=== PATIENT | male | born 1955 | race Caucasian/White ===

== ENCOUNTER 2016-09-05 15:50 | Emergency (ER) | payer MEDICARE ==
[~2016-09-05] VITALS: Ht 177.8 cm; Wt 204.0 kg
[~2016-09-05 15:50] MED LIST: ACET-2321 PO; ASPI325T PO; BUME2TAB18 PO; CEPH500C2 PO; DILT180C51 PO; DIPH25TA23 PO; GABA-338 PO; INSU100I14 SQ; INSU100V8 SQ; ISOS60TA4 PO; LEVO25TA9 PO; LISI-625 PO; METF10002 PO; METO-492 PO; NYST10PO TOP; SPIR50TA3 PO; SULF500T8 PO; WARF5TAB6 PO
--- OUTSIDE RECORDS SUMMARY | 2016-09-05 15:55 | XMS REPORT | Referral Summary ---
Author Author [facility] Organization [facility] Address Unknown Phone Unavailable Care Team Providers Care Condenser Setter Name Role Phone Kimo Rowland Primary Care Physician [phone] Encounter VC Date(s): 06/24/16 - 06/24/16 [facility] [address] [place] [address] [phone] Discharge Disposition: 01-Home or Self Care Attending Physician: Stanley Rowland MD Vital Signs No data available for this section Problem List Condition Effective Dates Status Health Status Informant Atrial fibrillation Active (disorder)(Confirmed ) Benign essential Active hypertension (disorder)(Confirmed ) Cellulitis(Confirmed Active ) Congestive heart Active failure(Confirmed) Non-healing ulcer of Active lower leg(Confirmed) Crohn's disease Active (disorder)(Confirmed ) Therapeutic drug Active monitoring(Confirmed ) Obesity Active hypoventilation syndrome(Confirmed) Warfarin Active anticoagulation(Conf irmed) High Active patient cholesterol(Confirme d) Hypothyroidism(Confi Active rmed) [place] (myocardial Active patient infarction)(Confirme d)1 Morbid obesity with Active BMI of 70 and over, adult(Confirmed) MRSA(Confirmed) Active Tear of skin of Active buttock(Confirmed) Sleep Active patient apnea(Confirmed) Venous stasis Active ulcer(Confirmed) Type 2 diabetes Active mellitus(Confirmed) Diabetic Active neuropathy(Confirmed ) Ulcer on Active LE(Confirmed) 1x 2 Allergies, Adverse Reactions, Alerts Substance Reaction Severity Status ibuprofen Cough Active uNspecfied sulfamethoxazole Hives Active sulfamethoxazole-trimetho uNspecfied Active prim trimethoprim Hives Active Medications Aleve 220 mg oral tablet 440 mg 2 tabs, Oral, q8hr, 0 Refill(s) Start Date: 12/29/15 Status: Ordered aspirin 325 mg oral tablet 1 tabs, Oral, Daily, # 30 tabs, 0 Refill(s) Start Date: 10/07/13 Status: Ordered Azulfidine 500 mg oral tablet 500 mg 1 tabs, Oral, TID, # 90 tabs, 3 Refill(s), Pharmacy: [facility], 1 tabs Oral TID Start Date: 10/05/15 Status: Ordered bumetanide 2 mg oral tablet 2 mg 1 tabs, Oral, BID, # 60 tabs, 6 Refill(s), Pharmacy: [facility] , 1 tabs Oral BID,x30 days Start Date: 06/07/16 Stop Date: 01/03/17 Status: Ordered Cartia XT 180 mg/24 hours oral capsule, extended release See Instructions, TAKE ONE CAPSULE BY MOUTH ONCE DAILY, # 30 caps, 6 Refill(s), Pharmacy: [place] [id number] Start Date: 06/04/16 Status: Ordered Colace 50 mg oral capsule 1 caps, Oral, Daily, # 30 caps, 0 Refill(s) Start Date: 10/07/13 Status: Ordered gabapentin 300 mg oral capsule See Instructions, TAKE TWO CAPSULES BY MOUTH THREE TIMES DAILY, # 180 caps, 1 Refill(s), Pharmacy: [place] [id number], TAKE TWO CAPSULES BY MOUTH THREE TIMES DAILY Start Date: 04/08/16 Status: Ordered garlic oral tablet 1,000 mg, Oral, Daily, 0 Refill(s) Start Date: 04/06/14 Status: Ordered HumaLOG 100 units/mL subcutaneous solution See Instructions, 0.35 mL SubCutaneous TIDAC E11.9, # 31.5 mL, 6 Refill(s), Pharmacy: [facility], 0.35 mL SubCutaneous TIDAC; E11.9 Start Date: 05/14/16 Status: Ordered isosorbide mononitrate 60 mg oral tablet, extended release 60 mg 1 tabs, Oral, qAM, # 30 tabs, 6 Refill(s), Pharmacy: [facility], 1 tabs Oral qAM Start Date: 12/29/15 Status: Ordered Keflex 500 mg oral capsule 500 mg 1 caps, Oral, q6hr, Got while in hospital, 0 Refill(s) Start Date: 04/08/16 Stop Date: 04/18/16 Status: Ordered Lantus 100 units/mL subcutaneous solution See Instructions, INJECT 60 UNITS UNDER THE SKIN DAILY., # 30 mL, 6 Refill(s), Pharmacy: [facility], INJECT 60 UNITS UNDER THE SKIN DAILY. Start Date: 06/04/16 Status: Ordered levothyroxine 50 mcg (0.05 mg) oral tablet 50 mcg 1 tabs, Oral, Daily, 90 day supply, # 90 tabs, 1 Refill(s), Pharmacy: [place] [id number], 1 tabs Oral Daily,Instr:90 day supply Start Date: 12/01/15 Status: Ordered lisinopril 5 mg oral tablet See Instructions, TAKE ONE TABLET BY MOUTH ONCE DAILY, # 90 tabs, 1 Refill(s), eRx: [place] [id number] Start Date: 06/10/16 Status: Ordered melatonin 5 mg oral tablet 1 tabs, Oral, Bedtime (once a day), as needed for insomnia, # 60 tabs, 0 Refill( s) Start Date: 10/19/13 Status: Ordered metFORMIN 1000 mg oral tablet See Instructions, TAKE ONE TABLET BY MOUTH TWICE DAILY, # 60 tabs, 6 Refill(s), Pharmacy: [place] [address] Start Date: 06/10/16 Status: Ordered metoprolol tartrate 100 mg oral tablet 100 mg 1 tabs, Oral, BID, # 60 tabs, 3 Refill(s), Pharmacy: [place] [address] Start Date: 04/11/16 Stop Date: 08/09/16 Status: Ordered Metoprolol Tartrate 50 mg oral tablet See Instructions, 1 tabs Oral BID 90 day supply, # 180 tabs, 0 Refill(s), Pharmacy: [facility], 1 tabs Oral BID 90 day supply Start Date: 02/02/16 Status: Ordered Miscellaneous DME DME Item Power wheelchair, ALBARO 99 yrs, Dx Morobid Obesity, Chronic deconditioning. Severe exertional Dsypnea. Inability to ambulate >30 feet., See Instructions, # 1 Each, 0 Refill(s), Power wheelchair, ALBARO 89 yrs, Dx Morobid Obesity, Chronic deconditi... Start Date: 08/08/15 Status: Ordered nitroglycerin 0.4 mg sublingual tablet 1 tabs, SubLingual, q5min, as needed for chest pain, # 25 tabs, 0 Refill(s), called to pharmacy (Rx), 1 tabs SubLingual q5min,PRN:as needed for chest pain Start Date: 01/28/14 Status: Ordered spironolactone 25 mg oral tablet 25 mg 1 tabs, Oral, BID, # 60 tabs, 6 Refill(s), Pharmacy: [facility], 1 tabs Oral BID,x30 days Start Date: 06/11/16 Stop Date: 01/07/17 Status: Ordered torsemide 20 mg oral tablet 2 tabs, Oral, Daily, # 60 tabs, 3 Refill(s), Pharmacy: [facility], 2 tabs Oral Daily Start Date: 09/07/14 Status: Ordered traZODone 50 mg oral tablet 50 mg 1 tabs, Oral, Bedtime (once a day), # 30 tabs, 1 Refill(s), Pharmacy: [facility], 1 tabs Oral Bedtime (once a day),x30 days Start Date: 06/07/16 Stop Date: 08/06/16 Status: Ordered warfarin 5 mg oral tablet 5 mg 1 tabs, Oral, Daily, # 90 tabs, 1 Refill(s), Pharmacy: [facility], 1 tabs Oral Daily Start Date: 03/08/16 Status: Ordered Results No data available for this section Immunizations Given and Recorded Vaccine Date Status Refusal Reason pneumococcal 23-polyvalent vaccine 05/17/09 Recorded Procedures Procedure Date Related Diagnosis Body Site Application of multi-layer compression 06/24/16 system; leg (below knee), including ankle and foot Colonoscopy1 12/29/15 Procedure with Anesthesia2 12/29/15 gallbladder hand3 lower leg4 tonsils 1auto-populated from documented surgical case 2auto-populated from documented surgical case 3right hand fifth finger 4right with hardware Social History Social History Type Response Smoking Status Never smoker Assessment and Plan No data available for this section
--- OUTSIDE RECORDS SUMMARY | 2016-09-05 15:55 | XMS REPORT | Referral Summary ---
Author Author [facility] Organization [facility] Address Unknown Phone Unavailable Care Team Providers Care Clinical Coder Name Role Phone KashifKimo Primary Care Physician [phone] Encounter VC Date(s): 03/18/16 - 03/18/16 [facility] [address] [place] [address] Discharge Disposition: 01-Home or Self Care Attending Physician: Cecilio Padilla DO Vital Signs No data available for this [...] Active patient cholesterol(Confirme d) Hypothyroidism(Confi Active rmed) [place] (myocardial Active patient infarction)(Confirme d)1 Morbid obesity [...] TID, # 90 tabs, 3 Refill(s), Pharmacy: [facility], 1 tabs Oral TID Start Date: 10/05/15 Status: Ordered Cartia XT 180 mg/24 hours oral capsule, extended release 180 mg 1 caps, Oral, Daily, # 30 caps, 6 Refill(s), other reason (Rx) Start Date: 11/09/15 Status: Ordered Colace 50 mg oral capsule 1 caps, Oral, Daily, # 30 caps, 0 Refill(s) Start Date: 10/07/13 Status: Ordered gabapentin 300 mg oral capsule See Instructions, TAKE TWO CAPSULES BY MOUTH THREE TIMES DAILY, # 180 caps, 1 Refill(s), eRx: [facility], TAKE TWO CAPSULES BY MOUTH THREE TIMES DAILY Start Date: 01/24/16 Status: Ordered garlic oral tablet 1,000 mg, Oral, Daily, 0 Refill(s) Start Date: 04/06/14 Status: Ordered isosorbide mononitrate 60 mg oral tablet, extended release 60 mg 1 tabs, Oral, qAM, # 30 tabs, 6 Refill(s), Pharmacy: [facility] 242, 1 tabs Oral qAM Start Date: 12/29/15 Status: Ordered Lantus 100 units/mL subcutaneous solution See Instructions, INJECT 60 UNITS UNDER THE SKIN DAILY. 1 month supply., # 20 mL , 5 Refill(s), Pharmacy: [facility], INJECT 60 UNITS UNDER THE SKIN DAILY. 1 month supply. Start Date: 07/03/15 Status: Ordered levothyroxine 50 mcg (0.05 mg) oral tablet 50 mcg 1 tabs, Oral, Daily, 90 day supply, # 90 tabs, 1 Refill(s), Pharmacy: [facility], 1 tabs Oral Daily,Instr:90 day supply Start Date: 12/01/15 Status: Ordered lisinopril 5 mg oral tablet See Instructions, take 1 tablet daily 90 day supply, # 90 tabs, 1 Refill(s), Pharmacy: [facility], take 1 tablet daily 90 day supply Start Date: 12/01/15 Status: Ordered melatonin 5 mg oral tablet 1 tabs, Oral, Bedtime (once a day), as needed for insomnia, # 60 tabs, 0 Refill( s) Start Date: 10/19/13 Status: Ordered metFORMIN 1000 mg oral tablet 1 tabs, Oral, BID, # 60 tabs, 5 Refill(s), Pharmacy: [facility], 1 tabs Oral BID Start Date: 08/01/14 Status: Ordered Metoprolol Tartrate 50 mg oral tablet See Instructions, 1 tabs Oral BID 90 day supply, # 180 tabs, 0 Refill(s), Pharmacy: [facility], 1 tabs Oral BID 90 day supply [...] Status: Ordered spironolactone 25 mg oral tablet 50 mg 2 tabs, Oral, BID, # 120 tabs, 3 Refill(s), Pharmacy: [facility], 2 tabs Oral BID Start Date: 03/29/15 Status: Ordered torsemide 20 mg oral tablet 2 tabs, Oral, Daily, # 60 tabs, 3 Refill(s), Pharmacy: [facility], 2 tabs Oral Daily Start Date: 09/07/14 Status: Ordered warfarin 5 mg oral tablet 5 mg 1 tabs, Oral, Daily, # 90 tabs, 1 Refill(s), Pharmacy: [facility], 1 tabs Oral Daily Start Date: 03/08/16 Status: Ordered Results No data available for this section Immunizations Vaccine Date Refusal Reason pneumococcal 23-polyvalent vaccine 05/17/09 Procedures Procedure Date Related Diagnosis Body Site Application of multi-layer compression 03/18/16 system; leg (below knee), including ankle and foot Colonoscopy1 12/29/15 Procedure with Anesthesia2 12/29/15 gallbladder hand3 lower leg4 tonsils 1auto-populated from documented surgical case 2auto-populated from documented surgical case 3right hand fifth finger 4right with hardware Social History Social History Type Response Smoking Status Never smoker Assessment and Plan No data available for this section
--- OUTSIDE RECORDS SUMMARY | 2016-09-05 15:56 | XMS REPORT | Referral Summary ---
Author Author [facility] Organization [facility] Address Unknown Phone Unavailable Care Team Providers Care Nuclear Equipment Design Engineer Name Role Phone KashifKimo Primary Care Physician [phone] Encounter VC Date(s): 02/05/16 - 02/05/16 [facility] [address] [place] [address] Discharge Disposition: 01-Home or Self Care Attending Physician: Cecilio Padilla DO Vital Signs No data available for this section Problem List Condition Effective Dates Status Health Status Informant Atrial fibrillation Active (disorder)(Confirmed ) Benign essential Active hypertension (disorder)(Confirmed ) Cellulitis(Confirmed Active ) Congestive heart Active failure(Confirmed) Non-healing ulcer of Active lower leg(Confirmed) Crohn's disease Active (disorder)(Confirmed ) Diabetic Active neuropathy(Confirmed ) Therapeutic drug Active monitoring(Confirmed ) Obesity Active hypoventilation syndrome(Confirmed) Warfarin Active anticoagulation(Conf irmed) High Active patient cholesterol(Confirme d) Hypothyroidism(Confi Active rmed) [place] (myocardial Active patient infarction)(Confirme d)1 Morbid obesity with Active BMI of 70 and over, adult(Confirmed) MRSA(Confirmed) Active Tear of skin of Active buttock(Confirmed) Sleep Active patient apnea(Confirmed) Venous stasis Active ulcer(Confirmed) Type 2 diabetes Active mellitus(Confirmed) Ulcer on Active LE(Confirmed) 1x 2 Allergies, [...] TID, # 90 tabs, 3 Refill(s), Pharmacy: [facility], 1 tabs Oral TID [...] DAILY, # 180 caps, 1 Refill(s), eRx: [facility], TAKE TWO CAPSULES BY MOUTH THREE TIMES DAILY Start Date: 01/24/16 Status: Ordered garlic oral tablet 1,000 mg, Oral, Daily, 0 Refill(s) Start Date: 04/06/14 Status: Ordered isosorbide mononitrate 60 mg oral tablet, extended release 60 mg 1 tabs, Oral, qAM, # 30 tabs, 6 Refill(s), Pharmacy: [facility] 242, 1 tabs Oral qAM Start Date: 12/29/15 Status: Ordered Lantus 100 units/mL subcutaneous solution See Instructions, INJECT 60 UNITS UNDER THE SKIN DAILY. 1 month supply., # 20 mL , 5 Refill(s), Pharmacy: [facility], INJECT 60 UNITS UNDER THE SKIN DAILY. 1 month supply. Start Date: 07/03/15 Status: Ordered levothyroxine 50 mcg (0.05 mg) oral tablet 50 mcg 1 tabs, Oral, Daily, 90 day supply, # 90 tabs, 1 Refill(s), Pharmacy: [facility], 1 tabs Oral Daily,Instr:90 day supply Start Date: 12/01/15 Status: Ordered lisinopril 5 mg oral tablet See Instructions, take 1 tablet daily 90 day supply, # 90 tabs, 1 Refill(s), Pharmacy: [facility], take 1 tablet daily 90 day supply Start Date: 12/01/15 Status: Ordered melatonin 5 mg oral tablet 1 tabs, Oral, Bedtime (once a day), as needed for insomnia, # 60 tabs, 0 Refill( s) Start Date: 10/19/13 Status: Ordered metFORMIN 1000 mg oral tablet 1 tabs, Oral, BID, # 60 tabs, 5 Refill(s), Pharmacy: [facility], 1 tabs Oral BID Start Date: 08/01/14 Status: Ordered Metoprolol Tartrate 50 mg oral tablet See Instructions, 1 tabs Oral BID 90 day supply, # 180 tabs, 0 Refill(s), Pharmacy: [facility], 1 tabs Oral BID [...] BID, # 120 tabs, 3 Refill(s), Pharmacy: [facility], 2 tabs Oral BID Start Date: 03/29/15 Status: Ordered torsemide 20 mg oral tablet 2 tabs, Oral, Daily, # 60 tabs, 3 Refill(s), Pharmacy: [facility], 2 tabs Oral Daily Start Date: 09/07/14 Status: Ordered warfarin 5 mg oral tablet 5 mg 1 tabs, Oral, Daily, # 90 tabs, 1 Refill(s), 1 tabs Oral Daily Start Date: 07/03/15 Status: Ordered Results No data available for this section Immunizations Vaccine Date Refusal Reason pneumococcal 23-polyvalent vaccine 05/17/09 Procedures Procedure Date Related Diagnosis Body Site Application of multi-layer compression 02/05/16 system; leg (below knee), including ankle and foot Colonoscopy1 12/29/15 Procedure with Anesthesia2 12/29/15 gallbladder hand3 lower leg4 tonsils 1auto-populated from documented surgical case 2auto-populated from documented surgical case 3right hand fifth finger 4right with hardware Social History Social History Type Response Smoking Status Never smoker Assessment and Plan No data available for this section
--- OUTSIDE RECORDS SUMMARY | 2016-09-05 15:56 | XMS REPORT | Referral Summary ---
Author Author [facility] Organization [facility] Address Unknown Phone Unavailable Care Team Providers Care Cargo Worker Name Role Phone KashifKimo Primary Care Physician [phone] Encounter VC Date(s): 03/04/16 - 03/04/16 [facility] [address] [place] [address] Discharge Disposition: 01-Home or Self Care Attending [...] Active patient cholesterol(Confirme d) Hypothyroidism(Confi Active rmed) [place] (myocardial Active patient infarction)(Confirme d)1 Morbid obesity [...] TID, # 90 tabs, 3 Refill(s), Pharmacy: [facility], 1 tabs Oral TID Start [...] DAILY, # 180 caps, 1 Refill(s), eRx: [facility], TAKE TWO CAPSULES BY MOUTH THREE TIMES DAILY Start Date: 01/24/16 Status: Ordered garlic oral tablet 1,000 mg, Oral, Daily, 0 Refill(s) Start Date: 04/06/14 Status: Ordered isosorbide mononitrate 60 mg oral tablet, extended release 60 mg 1 tabs, Oral, qAM, # 30 tabs, 6 Refill(s), Pharmacy: [facility], 1 tabs Oral qAM Start Date: 12/29/15 Status: Ordered Lantus 100 units/mL subcutaneous solution See Instructions, INJECT 60 UNITS UNDER THE SKIN DAILY. 1 month supply., # 20 mL , 5 Refill(s), Pharmacy: [facility]28, INJECT 60 UNITS UNDER THE SKIN DAILY. 1 month supply. Start Date: 07/03/15 Status: Ordered levothyroxine 50 mcg (0.05 mg) oral tablet 50 mcg 1 tabs, Oral, Daily, 90 day supply, # 90 tabs, 1 Refill(s), [facility]acy[facility], 1 tabs Oral Daily,Instr:90 day supply Start Date: 12/01/15 Status: Ordered lisinopril 5 mg oral tablet See Instructions, take 1 tablet daily 90 day supply, # 90 tabs, 1 Refill(s), Pharmacy: [facility]28, take 1 tablet daily 90 day supply Start Date: 12/01/15 Status: Ordered melatonin 5 mg oral tablet 1 tabs, Oral, Bedtime (once a day), as needed for insomnia, # 60 tabs, 0 Refill( s) Start Date: 10/19/13 Status: Ordered metFORMIN 1000 mg oral tablet 1 tabs, Oral, BID, # 60 tabs, 5 Refill(s), Pharmacy: [facility], 1 tabs Oral BID Start Date: 08/01/14 Status: Ordered Metoprolol Tartrate 50 mg oral tablet See Instructions, 1 tabs Oral BID 90 day supply, # 180 tabs, 0 Refill(s), Pharmacy: [facility]28, 1 tabs Oral BID 90 [...] BID, # 120 tabs, 3 Refill(s), Pharmacy: [facility]103, 2 tabs Oral BID Start Date: 03/29/15 Status: Ordered torsemide 20 mg oral tablet 2 tabs, Oral, Daily, # 60 tabs, 3 Refill(s), Pharmacy: [facility], 2 tabs Oral Daily Start Date: 09/07/14 Status: Ordered warfarin 5 mg oral tablet 5 mg 1 tabs, Oral, Daily, # 90 tabs, 1 Refill(s), 1 tabs Oral Daily Start Date: 07/03/15 Status: Ordered Results No data available for this section Immunizations Vaccine Date Refusal Reason pneumococcal 23-polyvalent vaccine 05/17/09 Procedures Procedure Date Related Diagnosis Body Site Application of multi-layer compression 03/04/16 system; leg (below knee), including ankle and foot Colonoscopy1 12/29/15 Procedure with Anesthesia2 12/29/15 gallbladder hand3 lower leg4 tonsils 1auto-populated from documented surgical case 2auto-populated from documented surgical case 3right hand fifth finger 4right with hardware Social History Social History Type Response Smoking Status Never smoker Assessment and Plan No data available for this section
--- OUTSIDE RECORDS SUMMARY | 2016-09-05 15:57 | XMS REPORT | Continuity of Care Document ---
Author Author [facility] Organization [facility] Address Unknown Phone Unavailable Support Name Relationship Address Phone JUS JONES MD Caregiver [address] [place] [address] [place] [address] Unavailable JUS JONES MD Caregiver [address] [place] [address] [place] [address] Unavailable ADITHYA PLATT MD Caregiver [address] [place] [id number] Unavailable ANGIE RIVERA Next Of Kin [phone] [place] [address] Insurance Providers Guarantor Waylon Rivera Address [address] [place] [address] Email DENIED TO PORTAL Payer Medicare Policy Number [id number] Subscriber's Name Waylon Rivera Relationship 17 Self Advance Directives Directive Response Recorded Date/Time Advanced Directives Type None 03/30/16 11:50am Ordered Resuscitation Status Full Code 03/30/16 7:10pm Resuscitation Documents on File No 03/30/16 2:15pm DPOA for Healthcare Only No 03/30/16 2:15pm Living Will No 03/30/16 2:15pm Problems Active Problems Medical Problem Onset Date Status Atrial fibrillation with RVR Unknown Acute CAD (coronary artery disease) Unknown Chronic Cellulitis of left lower extremity Unknown Acute Chronic anticoagulation Unknown Chronic Chronic atrial fibrillation Unknown Chronic Colitis, indeterminate Unknown Chronic Congestive heart failure Unknown Chronic Hypertension Unknown Chronic Hypothyroidism Unknown Chronic Insomnia Unknown Chronic Leukocytosis Unknown Acute Morbid obesity with BMI of 60.0-69.9, adult Unknown Chronic Neuropathy Unknown Chronic Obstructive sleep apnea Unknown Chronic Severe sepsis Unknown Resolved Tachycardia Unknown Acute Tinea corporis Unknown Chronic Type II diabetes mellitus Unknown Chronic Wound of left leg Unknown Chronic Past Problems Medical Problem Onset Date Cellulitis Unknown Medications Current Home Medications Medication Dose Units Route Directions Days Qty Instructions Start Date Acetaminophen (Tylenol) 325 Mg Tablet 325-650 Mg Oral Every 5 Hours as needed for Discomfort 30 Tablet 04/05/16 Aspirin 325 Mg Tablet 325 Mg Oral Daily 03/30/16 Bumetanide 2 Mg Tablet 2 Mg Oral Twice A Day 03/30/16 Cephalexin 500 Mg Capsule 500 Mg Oral Q6h/0300,0900,1500,2100 10 Days 40 Capsule 04/05/16 Diltiazem Hcl (Cartia Xt) 180 Mg Capsule 180 Mg Oral Daily Diphenhydramine Hcl 25 Mg Tablet 50 Mg Oral Every 4 Hours as needed for Prn Orders 03/30/16 Gabapentin 300 Mg Capsule 600 Mg Oral Three Times A Day 03/30/16 Insulin Glargine,Hum.rec.anlog (Lantus) 100 Unit/Ml Inj 60 Unit Sub-Q Bedtime 03/30/16 Insulin Lispro (Humalog) 100 Unit/1 Ml Insuln.pen 40 Unit Sub-Q Three Times Daily With Meals 03/30/16 Isosorbide Mononitrate (Isosorbide Mononitrate Er) 60 Mg Tab.er.24h 60 Mg Oral Daily 03/30/16 Levothyroxine Sodium 25 Mcg Tablet 25 Mcg Oral Before Breakfast Once daily before breakfast 03/30/16 Lisinopril 5 Mg Tablet 5 Mg Oral Daily 03/30/16 Metformin Hcl 1,000 Mg Tablet 1,000 Mg Oral Twice Daily With Meals 03/30/16 Metoprolol Tartrate (Lopressor) 100 Mg Tablet 100 Mg Oral Twice Daily With Meals 60 Tablet 04/05/16 Nystatin 50,000,000 Unit Powder.ea. 1 Applic Topically Three Times A Day 1 Bottle 04/05/16 Spironolactone 50 Mg Tablet 50 Mg Oral Daily 30 04/05/16 Sulfasalazine 500 Mg Tablet 500 Mg Oral Three Times A Day Warfarin Sodium 5 Mg Tablet 5 Mg Oral Daily 03/30/16 Past Home Medications Medication Directions Ordered Status Metoprolol Tartrate 50 Mg Tablet, 50 Mg Oral Twice Daily With Meals 03/30/16 Discontinued Spironolactone 50 Mg Tablet, 50 Mg Oral Twice A Day 03/30/16 Discontinued Social History Social History Problem Response Recorded Date/Time Onset Date Status Reason for Hospitalization cellulitis leg, severe sepsis 04/05/2016 5:55pm Not Applicable Not Applicable Chewing Tobacco Status No 03/30/2016 12:20pm Not Applicable Not Applicable Hx Substance Use No 03/30/2016 12:20pm Not Applicable Not Applicable Hx Alcohol Use No 03/30/2016 12:20pm Not Applicable Not Applicable Has the pt used tobacco in the last 12 months No 03/30/2016 2:18pm Not Applicable Not Applicable Query Response Start Date Stop Date Smoking Status Never smoker Hospital Discharge Instructions Instructions: Care Instructions: Reason for Hospitalization: cellulitis leg, severe sepsis I was in the hospital because (patient own words): I'm here because my leg flared up with a rash, nurse said go to hospital Discharge Diet: 2400 gabby ADA diet Discharge Activity: Up with walker as tolerated Follow Up Appointments: Follow-up at the wound care clinic with next week Follow-up with at the [facility] residency clinic next week Pending Lab / Results: No Pending Lab Patient Instructions: Use her CPAP at night Wound/Incision Care: Dressing changes on your leg 3 times a week and as needed by home health. Further recommendations per Dr. Coleman Pain Management/Treatment: Tylenol as needed Expected Signs/Symptoms: The redness on your leg should gradually improve Notify Physician If: Notify your physician if you are having increased redness in your leg, recurrence of fevers, diarrhea, or increased leg pain. Call 911 if you have lightheadedness, chest pain, or shortness of breath During Business Hours:: Please call the physician's office at the [facility] clinic After Business Hours:: Please call [phone] and have the glue reel operator page the physician. Condition at time of discharge: Good Plan of Care Discharge Date 04/05/16 6:30pm Disposition 06 HOME HEALTH SERVICE Instructions/Education Provided [facility] Congestive Heart Failure DI for Cellulitis -- Adult Prescriptions See Medication Section Care Plan and Goals See Discharge Instructions Section Functional Status Query Response Date Recorded Mobility Status Ambulatory w/assist April 05, 2016 5:55pm Assistive Devices Motorized Scooter April 05, 2016 5:55pm Activity Limitations Pain April 05, 2016 5:55pm Feeding Ability Independent April 05, 2016 5:55pm Toileting Ability Independent April 05, 2016 5:55pm Grooming Ability Independent April 05, 2016 5:55pm Dressing Ability Independent April 05, 2016 5:55pm Driving Ability Independent April 05, 2016 5:55pm Housework Ability Independent April 05, 2016 5:55pm Meal Preparation Ability Independent April 05, 2016 5:55pm Stair Climbing Ability Dependent April 05, 2016 5:55pm Ability to complete ADL's impeded by Impaired Mobility April 05, 2016 5:55pm Cognitive/Perceptual Impairments Impaired vision April 05, 2016 5:55pm Visual Assistive Devices Glasses With patient April 02, 2016 2:00pm Preferred Method of Learning Reading Listening April 02, 2016 2:00pm Allergies, Adverse Reactions, Alerts Allergen Type Severity Reaction Status Last Updated Ibuprofen Allergy Mild Active 03/30/16 Sulfamethoxazole Allergy Unknown rash Active 03/30/16 Trimethoprim Allergy Unknown rash Active 03/30/16 Immunizations Query Response on File Recorded Date/Time Hx Influenza Vaccination N does not take them 03/30/16 2:18pm Hx Pneumococcal Vaccination Yes 03/30/16 2:18pm Hx Influenza Vaccination N does not take them 03/30/16 2:18pm Vital Signs Acute Vital Signs Vital Response Date/Time Temperature (Fahrenheit) 96.9 deg F (96.8 - 99.1) 04/05/2016 4:10pm Temperature (Calculated Celsius) 36.14459 degrees C (36.0 - 37.3) 04/05/2016 4:10pm Pulse Rate (adult) 16 bpm (60 - 100) 04/05/2016 4:10pm Respiratory Rate 88 breaths/min (10 - 20) 04/05/2016 4:10pm O2 Sat by Pulse Oximetry 95 % (90 - 100) 04/05/2016 4:10pm Oxygen Delivery Method Room Air 04/05/2016 4:10pm Fraction of Inspired Oxygen (FIO2) 21 % 04/02/2016 7:20am Blood Pressure 115/67 mm Hg 04/05/2016 4:10pm Blood Pressure Source Automatic Cuff 04/05/2016 4:10pm Height (Feet) 5 feet 04/05/2016 9:54am Height (Inches) 10.00 inches 04/05/2016 9:54am Weight (Kilograms) 201.200 kg 04/05/2016 7:30am Body Mass Index (BMI) 65.0 03/30/2016 2:13pm Results Laboratory Results Test Name Result Units Flags Reference Collection Date/Time Result Date/ Time Comments White Blood Count 12.0 T/MM3 H 4.5-11.0 04/05/2016 4:00am 04/05/2016 9: 40am Red Blood Count 4.40 M/MM3 L 4.50-5.90 04/05/2016 4:00am 04/05/2016 9: 40am Hemoglobin 11.9 GM/DL L 13.5-17.5 04/05/2016 4:00am 04/05/2016 9:40am Hematocrit 37.9 % L 41-53 04/05/2016 4:00am 04/05/2016 9:40am Mean Corpuscular Volume 86.1 UM3 80-100 04/05/2016 4:00am 04/05/2016 9: 40am Mean Corpuscular Hemoglobin 27.0 UUG 26-34 04/05/2016 4:00am 2015 9:40am Mean Corpuscular Hemoglobin Concent 31.4 GM/DL 31-37 04/05/2016 4:00am 04/05/2016 9:40am RDW Standard Deviation 44.1 FL 36.9-50.2 04/05/2016 4:00am 04/05/2016 9 :40am Platelet Count 335 T/MM3 130-400 04/05/2016 4:00am 04/05/2016 9:40am Mean Platelet Volume 10.5 UM3 9.4-12.4 04/05/2016 4:00am 04/05/2016 9: 40am Neutrophils % (Manual) 72.0 % H 33-66 04/05/2016 4:00am 04/05/2016 9: 59am Band Neutrophils % 1.0 % 0-6 04/05/2016 4:00am 04/05/2016 9:59am Lymphocytes % (Manual) 14.0 % L 23-45 04/05/2016 4:00am 04/05/2016 9: 59am Monocytes % (Manual) 8.0 % 0-9.0 04/05/2016 4:00am 04/05/2016 9:59am Eosinophils % (Manual) 5.0 % H 0-4 04/05/2016 4:00am 04/05/2016 9:59am Metamyelocytes % 3.0 % H 0-0 04/04/2016 5:08am 04/04/2016 6:40am Myelocytes % 5.0 % H 0-0 04/04/2016 5:08am 04/04/2016 6:40am Reactive Lymphocytes % 2.0 % H 0-0 04/04/2016 5:08am 04/04/2016 6:40am Band Neutrophils # 0.1 T/MM3 04/05/2016 4:00am 04/05/2016 9:59am Absolute Neutrophils (Manual) 8.6 T/MM3 H 1.8-7.7 04/05/2016 4:00am 06/2015 9:59am Lymphocytes # (Manual) 1.7 T/MM3 1-4.8 04/05/2016 4:00am 04/05/2016 9: 59am Monocytes # (Manual) 1.0 T/MM3 H 0-0.8 04/05/2016 4:00am 04/05/2016 9: 59am Eosinophils # (Manual) 0.6 T/MM3 H 0-0.5 04/05/2016 4:00am 04/05/2016 9: 59am Metamyelocytes # 0.3 T/MM3 04/04/2016 5:08am 04/04/2016 6:40am Myelocytes # 0.6 T/MM3 04/04/2016 5:08am 04/04/2016 6:40am Reactive Lymphocytes # 0.2 T/MM3 H 0-0 04/04/2016 5:08am 04/04/2016 6: 40am Red Cell Morphology Comment NORMAL 04/05/2016 4:00am 04/05/2016 9: 59am Prothromb Time International Ratio 2.12 H 0.99-1.21 04/05/2016 4:54am 04/05/2016 5:47am THERAPUTIC RANGE=2.00-3.00 FOR ANTI-THROMBOSIS THERAPUTIC RANGE=2.50-3.50 FOR IMPLANTED VALVE Icterus Index < 2 0-7 04/05/2016 4:00am 04/05/2016 9:45am Chemistry Specimen Hemolysis < 15 0-25 04/05/2016 4:00am 04/05/2016 9 :45am 0-25: Specimen Exhibited No Hemolysis. Turbidity < 20 0-20 04/05/2016 4:00am 04/05/2016 9:45am Sodium Level 134 MEQ/L 134-144 04/05/2016 4:00am 04/05/2016 9:45am Potassium Level 4.9 MEQ/L 3.6-5 04/05/2016 4:00am 04/05/2016 9:45am Chloride Level 92 MEQ/L L 98-107 04/05/2016 4:00am 04/05/2016 9:45am Carbon Dioxide Level 33 MEQ/L H 22-30 04/05/2016 4:00am 04/05/2016 9: 45am Anion Gap 9 MEQ/L 5-15 04/05/2016 4:00am 04/05/2016 9:45am Blood Urea Nitrogen 30.0 MG/DL H 9-20 04/05/2016 4:00am 04/05/2016 9: 45am Creatinine 1.2 MG/DL 0.8-1.5 04/05/2016 4:00am 04/05/2016 9:45am BUN/Creatinine Ratio 25 RATIO 6-26 04/05/2016 4:00am 04/05/2016 9:45am Glomerular Filtration Rate Calc 61 04/05/2016 4:00am 04/05/2016 9: 45am Glucose Level 154 MG/DL H 75-110 04/05/2016 4:00am 04/05/2016 9:45am Calculated Osmolality 267 MOSM/KG 261-280 04/05/2016 4:00am 04/05/2016 9:45am Calcium Level 8.7 MG/DL 8.4-10.2 04/05/2016 4:00am 04/05/2016 9:45am Total Bilirubin 0.60 MG/DL 0.20-1.30 04/02/2016 4:40am 04/02/2016 5: 37am Unconjugated Bilirubin < -0.30 MG/DL L 0.00-1.10 03/30/2016 12:37pm 3:35pm Alkaline Phosphatase 178 U/L D H 38-126 04/02/2016 4:40am 04/02/2016 5: 52am Total Protein 6.6 G/DL 6.3-8.2 04/02/2016 4:40am 04/02/2016 5:37am Albumin 3.3 G/DL L 3.5-5.0 04/02/2016 4:40am 04/02/2016 5:37am Globulin 3.3 G/DL 2.4-3.6 04/02/2016 4:40am 04/02/2016 5:37am Albumin/Globulin Ratio 1.0 RATIO L 1.1-2.2 04/02/2016 4:40am 04/02/2016 5:37am Aspartate Amino Transf (AST/SGOT) 46 U/L D 17-59 04/02/2016 4:40am 2015 5:52am Alanine Aminotransferase (ALT/SGPT) 47 U/L 21-72 04/02/2016 4:40am 5:37am C-Reactive Protein 157.0 MG/L H 0-9 04/02/2016 4:40am 04/02/2016 5:48am Plasma Lactate 1.3 MMOL/L 0.6-2.2 03/30/2016 4:42pm 03/30/2016 5:25pm Procalcitonin 0.65 NG/ML 03/30/2016 4:42pm 03/30/2016 5:26pm PCT </= 0.5 ng/mL - sepsis not likely; PCT >0.5 and </=2 ng/mL - sepsis possible; PCT >2 ng/mL - sepsis likely; PCT >/=10 ng/mL - systemic inflammatory response - sepsis or septic shock highly indicated. Thyroid Stimulating Hormone (TSH) 3.13 MIU/L 0.47-4.68 03/31/2016 5: 52am 03/31/2016 6:46am Hemoglobin A1c 7.9 % 6.1-7.9 03/31/2016 5:52am 03/31/2016 6:14am <6.0 NON-DIABETIC RANGE 6.1-7.9 [facility] TARGET RANGE >8.0 ACTION SUGGESTED MRSA Specimen Source NASAL 04/02/2016 1:10pm 04/02/2016 3:43pm Methicillin-Resist S.aureus DNA PCR NEGATIVE NEGATIVE 04/02/2016 1: 10pm 04/02/2016 3:43pm Urine Color YELLOW YELLOW 03/31/2016 4:53pm 03/31/2016 5:04pm Urine Turbidity CLEAR CLEAR 03/31/2016 4:53pm 03/31/2016 5:04pm Urine Specific [place] 1.015 1.015-1.025 03/31/2016 4:53pm 2015 5:04pm Urine pH 5.0 5.0-8.0 03/31/2016 4:53pm 03/31/2016 5:04pm Urine Leukocyte Esterase NEGATIVE NEGATIVE 03/31/2016 4:53pm 2015 5:04pm Urine Nitrite NEGATIVE NEGATIVE 03/31/2016 4:53pm 03/31/2016 5:04pm Urine Protein NEGATIVE NEGATIVE 03/31/2016 4:53pm 03/31/2016 5:04pm Urine Glucose (UA) NEGATIVE NEGATIVE 03/31/2016 4:53pm 03/31/2016 5: 04pm Urine Ketones NEGATIVE NEGATIVE 03/31/2016 4:53pm 03/31/2016 5:04pm Urine Urobilinogen 0.2 EU/DL NORMAL 03/31/2016 4:53pm 03/31/2016 5: 04pm Urine Bilirubin NEGATIVE NEGATIVE 03/31/2016 4:53pm 03/31/2016 5: 04pm Urine Blood NEGATIVE NEGATIVE 03/31/2016 4:53pm 03/31/2016 5:04pm Urinalysis Comment MICROSCOPIC NOT IND. 03/31/2016 4:53pm 2015 5:04pm Glucometer 177 mg/dL H 75-110 04/04/2016 10:24am 04/04/2016 10:30am Name: WAYLON RIVERA Unit #: [id number] : 1955 Sex: M DISCHARGE SUMMARY Admit Date: 03/30/16 Report #: [id number] [facility] General Date Date DATE: 04/05/16 TIME: 17:54 Attending Physician Jus Jones MD Admitting Physician Jus Jones MD Consulting Physician Dr Maria Antonia Almanza Admitting Diagnosis Sepsis, Cellulitis Discharge Diagnosis #1 cellulitis of left thigh #2 severe sepsis #3 A. fib with RVR-heart rate improved with increased dose of metoprolol #4 leukocytosis #5 chronic left lower leg wound #6 coronary artery disease #7 congestive heart failure chronic #8 chronic anticoagulation with Coumadin for atrial fibrillation #9 type 2 diabetes mellitus #10 tinea corporis #11 morbid obesity #12 obstructive sleep apnea for which he uses CPAP chronically #13 hypothyroidism #14 coronary artery disease-stable Procedures None Laboratory Item Value Date Time Potassium Level 4.9 MEQ/L 04/05/16 0400 Potassium Level 4.2 MEQ/L 04/04/16 0508 Potassium Level 4.4 MEQ/L 04/03/16 0445 Potassium Level 3.9 MEQ/L 04/02/16 0440 Potassium Level 3.8 MEQ/L 04/01/16 0437 Procalcitonin 0.65 NG/ML 03/30/16 1642 Plasma Lactate 1.3 MMOL/L 03/30/16 1642 C-Reactive Protein 299.7 MG/L H 03/30/16 1237 Plasma Lactate 2.4 MMOL/L H 03/30/16 1237 Procalcitonin 0.78 NG/ML 03/30/16 1237 Laboratory Tests Test 04/04/16 10:24 04/05/16 04:00 04/05/16 04:54 Glucometer 177mg/dL (75-110) White Blood Count 12.0T/MM3 (4.5-11.0) Red Blood Count 4.40M/MM3 (4.50-5.90) Hemoglobin 11.9GM/DL (13.5-17.5) Hematocrit 37.9% (41-53) Mean Corpuscular Volume 86.1UM3 (80-100) Mean Corpuscular Hemoglobin 27.0UUG (26-34) Mean Corpuscular Hemoglobin Concent 31.4GM/DL (31-37) RDW Standard Deviation 44.1FL (36.9-50.2) Platelet Count 335T/MM3 (130-400) Mean Platelet Volume 10.5UM3 (9.4-12.4) Neutrophils % (Manual) 72.0% (33-66) Band Neutrophils % 1.0% (0-6) Lymphocytes % (Manual) 14.0% (23-45) Monocytes % (Manual) 8.0% (0-9.0) Eosinophils % (Manual) 5.0% (0-4) Absolute Neutrophils (Manual) 8.6T/MM3 (1.8-7.7) Band Neutrophils # 0.1T/MM3 Lymphocytes # (Manual) 1.7T/MM3 (1-4.8) Monocytes # (Manual) 1.0T/MM3 (0-0.8) Eosinophils # (Manual) 0.6T/MM3 (0-0.5) Red Cell Morphology Comment Normal Turbidity < 20 (0-20) Sodium Level 134MEQ/L (134-144) Potassium Level 4.9MEQ/L (3.6-5) Chloride Level 92MEQ/L (98-107) Carbon Dioxide Level 33MEQ/L (22-30) Anion Gap 9MEQ/L (5-15) Blood Urea Nitrogen 30.0MG/DL (9-20) Creatinine 1.2MG/DL (0.8-1.5) Glomerular Filtration Rate Calc 61 BUN/Creatinine Ratio 25RATIO (6-26) Glucose Level 154MG/DL (75-110) Calculated Osmolality 267MOSM/KG (261-280) Calcium Level 8.7MG/DL (8.4-10.2) Icterus Index < 2 (0-7) Chemistry Specimen Hemolysis < 15 (0-25) Prothromb Time International Ratio 2.12 (0.99-1.21) Radiology #1 Chest x-ray on 03/31/2016 shows cardiomegaly without overt congestive changes #2 Left lower extremity venous Doppler shows no evidence of DVT #3 CT left lower extremity with contrast Impression: Fairly extensive subcutaneous edema primarily over the anterior left lower extremity without extension deep to the investing fascia to suggest muscular or deep fascial compartment involvement. History of Present Illness Mr. Moise is a 61-year-old gentleman with multiple medical problems who presents to [facility] emergency room secondary to increasing redness and discomfort over his left lower extremity. Symptoms onset abruptly two days ago. He reports on the his home health nurse came to check on the chronic wound he has on his left lower leg. His thigh was looking well at that time. He went to take a nap and when he woke up about four hours later that evening his left thigh was very, very red and uncomfortable. He notes pain in this area, worse with movement. He denies it being itchy. During this time he has been having fevers and chills off and on. Indeed this morning temperature was 99.2. Appetite has been decreased over the past several days. He notes some nausea because he hasn't been eating. He does have inflammatory bowel; reports his stool was loose all this week but bowels did normalize yesterday. He has not had blood in the stool. He notes shallow breathing. Denies increasing cough, congestion or pain as he breathes. He is not noticing palpitations or cardiac irregularity; does have chronic atrial fibrillation. Reports a few small episodes of chest discomfort but they resolve spontaneously before he can get to have sublingual nitrates. While he denies unilateral weakness or numbness he has been feeling very globally weak and tired for the last week. He has not been sleeping well for the past several days. Blood pressures has been running low at times, in the 80s - he did have to back off on some of his blood pressure medications. He has not had falls or trauma. As his leg was becoming progressively more red and uncomfortable he sought emergency evaluation at [facility]. Lab was performed showing white count elevated at 19.8 with 86% neutrophils and 2% bands. Plasma lactate is elevated at 2.4. He was tachycardic with heart rate in the 97 -120 range. Initial blood pressure was 118/71. In light of his severe sepsis syndrome secondary cellulitis Dr. Jones was notified and patient was subsequently placed in inpatient admission status at [facility] for further evaluation and treatment. It is thought that he will need greater than two midnights of hospitalization and medical care. Hospital Course The patient is a 61-year-old diabetic with a history of chronic venous stasis ulcers of the left lower extremity for which she sees in the wound clinic at [place]. He was admitted with cellulitis of the left thigh and it was very red, swollen and painful. He was admitted on 03/30/2016. He had hypotension with blood pressure in the 80s and tachycardia initially. White count was 19.8 and lactate was 2.4. Unfortunately blood cultures were not drawn in the ER. He was started on to fluoroscopy and has noticed improvement. Doppler of the left leg was negative for DVT. CT of the left lower extremity was negative for abscess, myositis or necrotizing fasciitis. Dr. Almanza, infectious disease specialist did see the patient and thought his cellulitis was likely strep. She recommended de-escalating antibiotics and starting cephalexin. He would need to continue with wound care for the left lower extremity wound at [place]. The patient's cellulitis did improve over the hospital course. White count did improve. He had no further fevers. Was felt to be stable for discharge regarding cellulitis on 04/05/2016 with 10 more days of cephalexin. His home health company was changed as the previous home health was no longer able to come and change his dressings. His new home health will only be able to come 3 times a week. He will need to discuss this with his physician at the wound care clinic next week. The patient's sepsis did resolve. The patient also has chronic A. fib and is anticoagulated on Coumadin. He remained on Coumadin during this hospital course. He was noted to have rapid ventricular response and this did resolve with increase in metoprolol from his usual home dose of 50 mg twice daily up to 100 mg twice daily. He has not had hypotension with this increase. He continues to have elevated heart rate with activity, but at rest it has improved. I did offer a cardiology consultation, but the patient declined because he stated all of the cardiologists in the past wanted to do procedures which he could not afford. The patient was maintained on his usual Bumex and spironolactone for congestive heart failure. Potassium was trending up during the hospital course and is 4.9 at discharge. I will decrease his spironolactone from 50 mg twice daily down to 50 mg once daily. The patient will be discharged with home health and will need lab work on Friday , 04/08/2016 including a basic metabolic profile, CBC with differential and INR that are to be called to the patient's primary care physician Dr. Stanley Schmidt at the [facility] family medicine residency clinic in [place]. He is to continue to use his CPAP nightly. I did call and talk with Dr. Schmidt and notified him of hospital course and discharge plans. Greater than 30 minutes of time was spent on dismissal day. Problems: (1) Cellulitis of left lower extremity Status: Acute (2) Severe sepsis Status: Resolved (3) Atrial fibrillation with RVR Status: Acute Assessment & Plan: Cardizem is being continued at 180 mg daily. Metoprolol was increased to 100 mg by mouth twice a day (previously 50 mg twice a day). (4) Leukocytosis Status: Acute Assessment & Plan: POA (5) Wound of left leg Status: Chronic Assessment & Plan: POA (6) CAD (coronary artery disease) Status: Chronic (7) Congestive heart failure Status: Chronic (8) Hypertension Status: Chronic (9) Chronic atrial fibrillation Status: Chronic (10) Chronic anticoagulation Status: Chronic (11) Type II diabetes mellitus Status: Chronic (12) Hypothyroidism Status: Chronic (13) Neuropathy Status: Chronic (14) Colitis, indeterminate Status: Chronic (15) Insomnia Status: Chronic (16) Tinea corporis Status: Chronic (17) Morbid obesity with BMI of 60.0-69.9, adult Status: Chronic (18) Obstructive sleep apnea Status: Chronic Assessment & Plan: Uses CPAP DVT Prophylaxis: Coumadin Code Status Full Code Home Meds Active Scripts Acetaminophen (Tylenol) 325 Mg Tablet, 325-650 MG PO Q5H Y for DISCOMFORT, #30 TAB Prov:KIRSTIE LAGUERRE MD 04/05/16 Metoprolol Tartrate (Lopressor) 100 Mg Tablet, 100 MG PO BIDWM, #60 TAB Prov:KIRSTIE LAGUERRE MD 04/05/16 Nystatin (Nystatin) 50,000,000 Unit Powder.ea., 1 APPLIC TOP TID, #1 BOTTLE Prov:KIRSTIE LAGUERRE MD 04/05/16 Cephalexin (Cephalexin) 500 Mg Capsule, 500 MG PO Q6HR for 10 Days, #40 CAP Prov:KIRSTIE LAGUERRE MD 04/05/16 Spironolactone (Spironolactone) 50 Mg Tablet, 50 MG PO DAILY, #30 Prov:KIRSTIE LAGUERRE MD 04/05/16 Reported Medications Levothyroxine Sodium (Levothyroxine Sodium) 25 Mcg Tablet, 25 MCG PO ACB, TAB Once daily before breakfast 03/30/16 Insulin Glargine,Hum.rec.anlog (Lantus) 100 Unit/Ml Inj, 60 UNIT SQ HS, VIAL 03/30/16 Insulin Lispro (Humalog) 100 Unit/1 Ml Insuln.pen, 40 UNIT SQ TIDWM, SYRINGE 03/30/16 Diphenhydramine HCl (Diphenhydramine HCl) 25 Mg Tablet, 50 MG PO Q4H Y for PRN ORDERS 03/30/16 Gabapentin (Gabapentin) 300 Mg Capsule, 600 MG PO TID 03/30/16 Bumetanide (Bumetanide) 2 Mg Tablet, 2 MG PO BID 03/30/16 Sulfasalazine (Sulfasalazine) 500 Mg Tablet, 500 MG PO TID 03/30/16 Lisinopril (Lisinopril) 5 Mg Tablet, 5 MG PO DAILY 03/30/16 Diltiazem HCl (Cartia Xt) 180 Mg Capsule, 180 MG PO DAILY 03/30/16 Metformin HCl (Metformin HCl) 1,000 Mg Tablet, 1000 MG PO BIDWM 03/30/16 Isosorbide Mononitrate (Isosorbide Mononitrate ER) 60 Mg Tab.er.24h, 60 MG PO DAILY 03/30/16 Warfarin Sodium (Warfarin Sodium) 5 Mg Tablet, 5 MG PO DAILY 03/30/16 Aspirin (Aspirin) 325 Mg Tablet, 325 MG PO DAILY 03/30/16 Discontinued Reported Medications Metoprolol Tartrate (Metoprolol Tartrate) 50 Mg Tablet, 50 MG PO BIDWM 03/30/16 Discharge Disposition Dismiss to home in stable condition Copies To 1: KOURTNEY ALMANZA MD, STEPHANIE L MD Apr 05, 2016 17:57 Procedures No known history of procedures. Encounters Encounter Location Arrival/Admit Date Discharge/Depart Date Attending Provider Discharged Inpatient [facility] 03/30/16 1:44pm 04/05/16 6:30pm JUS JONES MD
--- OUTSIDE RECORDS SUMMARY | 2016-09-05 15:57 | XMS REPORT | Continuity of Care Document ---
Author Author [facility] Organization [facility] Address Unknown Phone Unavailable Allergies Active Description Code Type Severity Reaction Onset Reported/Identified Relationship to Patient Clinical Status Yes Bactrim Drug Allergy uNspecfied 02/06/2012 Yes Bactrim Drug Allergy N/A uNspecfied 02/06/2012 Yes ibuprofen Drug Allergy uNspecfied 02/06/2012 Yes ibuprofen Drug Allergy N/A uNspecfied 02/06/2012 Yes ibuprofen NKMA N/A Cough uNspecfied 09/02/2013 Yes sulfamethoxazole NKMA N/A Hives 09/02/2013 Yes sulfamethoxazole-trimethoprim NKMA N/A uNspecfied 09/02/2013 Yes trimethoprim NKMA N/A Hives 09/02/2013 Yes ibuprofen NKMA N/A Cough uNspecfied 09/02/2013 Yes sulfamethoxazole NKMA N/A Hives 09/02/2013 Yes sulfamethoxazole-trimethoprim NKMA N/A uNspecfied 09/02/2013 Yes trimethoprim NKMA N/A Hives 09/02/2013 Medications Medication Packaging Start Date Stop Date Route Dosage Sig warfarin(warfarin 5 mg oral tablet) 1 tabs 10/19/20132013 Oral 5 mg 1 tabs, Oral, Daily, 30 tabs insulin lispro(HumaLOG 100 units/mL subcutaneous solution) 10/19/2013 07/13/2014 SubCutaneous 32 units 32 units, SubCutaneous, TIDAC, 10 mL hydrOXYzine(hydrOXYzine hydrochloride 25 mg oral tablet) 1 tabs 10/19/2013 10/22/2013 Oral 25 mg 1 tabs, Oral, QID, 40 tabs, PRN: as needed for itching lisinopril(lisinopril 5 mg oral tablet) 1 tabs 10/19/201310/22 Oral 5 mg 1 tabs, Oral, Daily, 30 tabs melatonin(melatonin 5 mg oral tablet) 1 tabs 10/19/2013 Oral 5 mg 1 tabs, Oral, Bedtime (once a day), 60 tabs, PRN: as needed for insomnia warfarin(warfarin 5 mg oral tablet) 1 tabs 10/22/20132014 Oral 5 mg 1 tabs, Oral, Daily, 90 tabs hydrOXYzine(hydrOXYzine hydrochloride 25 mg oral tablet) 1 tabs 10/22/2013 06/08/2014 Oral 25 mg 1 tabs, Oral, q6hr, 30 tabs, PRN: as needed for itching lisinopril(lisinopril 5 mg oral tablet) 1 tabs 10/22/201302/23 Oral 5 mg 1 tabs, Oral, Daily, Decrease to 2.5 mg (1/2 tab per day), 90 tabs diltiazem(Cardizem CD 180 mg/24 hours oral capsule, extended release) 06/29/2014 See Instructions, take 1 capsule (180MG ) by oral route every day, 30 unknown unit metFORMIN(metFORMIN 1000 mg oral tablet) 1 tabs 12/30/2013 Oral 1,000 mg 1 tabs, Oral, BID, 60 tabs nitroglycerin(nitroglycerin 0.4 mg sublingual tablet) 1 tabs 01/28/2014 01/28/2014 SubLingual 0.4 mg 1 tabs, SubLingual, q5min, 8,640 tabs, PRN : as needed for chest pain nitroglycerin(nitroglycerin 0.4 mg sublingual tablet) 1 tabs 01/28/2014 SubLingual 0.4 mg 1 tabs, SubLingual, q5min, 25 tabs, PRN: as needed for chest pain bumetanide(bumetanide 2 mg oral tablet) 1 tabs 02/10/201402/23 Oral 2 mg 1 tabs, Oral, BID, 60 tabs bumetanide(bumetanide 2 mg oral tablet) 1 tabs 02/23/201405/02 Oral 2 mg 1 tabs, Oral, BID, 60 tabs lisinopril(lisinopril 5 mg oral tablet) 02/23/20142014 See Instructions, Decrease to taking 1/2 tabs Oral Daily, 30 tabs spironolactone(spironolactone 50 mg oral tablet) 1 tabs 02/24/2014 06/03/2014 Oral 50 mg 1 tabs, Oral, BID, 60 tabs metoprolol(metoprolol tartrate 50 mg oral tablet) 1 tabs 03/30/2014 05/02/2014 Oral 50 mg 1 tabs, Oral, BID, 60 tabs clotrimazole topical(clotrimazole 1% topical cream) 1 daniela 03/30/2014 11/09/2015 Topical Voided isosorbide mononitrate(isosorbide mononitrate 60 mg oral tablet, extended release) 1 tabs 04/04/2014 06/01/2015 Oral 60 mg 1 tabs, Oral, qAM, 30 tabs insulin glargine(Lantus 100 units/mL subcutaneous solution ) 05/02/2014 10/31/2014 See Instructions, INJECT 60 UNITS SUBCUTANEOUSLY EACH DAY, 20 unknown unit bumetanide(bumetanide 2 mg oral tablet) 05/02/20142014 See Instructions, 1 tabs Oral BID, 60 tabs clobetasol topical(clobetasol 0.05% topical ointment) 1 daniela 05/20/2014 08/26/2014 Topical 1 daniela, Topical, BID, 30 g triamcinolone topical(triamcinolone 0.1% topical cream) 1 daniela 05/20/2014 11/09/2015 Topical 1 daniela, Topical, TID, 60 g spironolactone(spironolactone 50 mg oral tablet) 06/03/2014 06/29/2014 See Instructions, 1 tabs Oral BID, 60 tabs hydrOXYzine(hydrOXYzine hydrochloride 25 mg oral tablet) 1 tabs 06/08/2014 07/29/2014 Oral 25 mg 1 tabs, Oral, q6hr, 30 tabs, PRN: as needed for itching diltiazem(Cardizem CD 180 mg/24 hours oral capsule, extended release) 02/15/2015 See Instructions, take 1 capsule (180MG ) by oral route every day, 30 tabs, 6 Refill(s) spironolactone(spironolactone 50 mg oral tablet) 06/29/2014 06/29/2014 See Instructions, 1 tabs Oral BID, 60 tabs spironolactone(spironolactone 50 mg oral tablet) 1 tabs 06/29/2014 11/09/2015 Oral 50 mg Voided insulin lispro(HumaLOG 100 units/mL subcutaneous solution) 0.35 mL 07/13/2014 09/28/2014 SubCutaneous 35 units 0.35 mL, SubCutaneous, TIDAC, 31.5 mL amoxicillin(amoxicillin 875 mg oral tablet) 1 tabs 07/13/2014 07/16/2014 Oral 875 mg 1 tabs, Oral, BID, 6 tabs torsemide(torsemide 20 mg oral tablet) 1 tabs 07/13/20142014 Oral 20 mg 1 tabs, Oral, Daily, 30 tabs clobetasol topical(clobetasol 0.05% topical ointment) 08/26/2014 11/09/2015 Voided lisinopril(lisinopril 5 mg oral tablet) 08/26/20142014 See Instructions, TAKE ONE-HALF TABLET BY MOUTH ONCE DAILY, 30 tabs torsemide(torsemide 20 mg oral tablet) 2 tabs 09/07/2014 Oral 40 mg 2 tabs, Oral, Daily, 60 tabs insulin lispro(HumaLOG 100 units/mL subcutaneous solution) 09/28/2014 10/28/2014 See Instructions, 0.35 mL SubCutaneous TIDAC, 31.5 mL isosorbide mononitrate(isosorbide mononitrate 60 mg oral tablet, extended release) 1 tabs 10/07/2014 06/01/2015 Oral 60 mg 60 mg=1 tabs, Oral, qAM, 30 tabs, 6 Refill(s) hydrOXYzine(hydrOXYzine hydrochloride 25 mg oral tablet) 10/28/2014 11/09/2015 Voided lisinopril(lisinopril 5 mg oral tablet) 10/28/20142014 See Instructions, TAKE ONE-HALF TABLET BY MOUTH ONCE DAILY, 30 tabs, 5 Refill(s) spironolactone(spironolactone 25 mg oral tablet) 2 tabs 11/10/2014 03/29/2015 Oral 50 mg 50 mg=2 tabs, Oral, BID, 120 tabs, 0 Refill(s) lisinopril(lisinopril 5 mg oral tablet) 11/10/20142014 See Instructions, TAKE ONE-HALF TABLET BY MOUTH ONCE DAILY, 30 tabs, 11 Refill(s) doxycycline(doxycycline hyclate 100 mg oral capsule) 1 caps 04/10/2015 04/20/2015 Oral 100 mg 100 mg=1 caps, Oral, BID, for 10 days, 20 caps, 0 Refill(s) warfarin(warfarin 1 mg oral tablet) 04/11/2015 04/11/2015 See Instructions, 1 tabs with 5mg=6mg mondays and th only. (5mg daily the rest of the week). Bruce INR in 2 weeks., 0 Refill(s) warfarin(warfarin 1 mg oral tablet) 04/11/2015 04/11/2015 See Instructions, 1 tabs with 5mg=6mg mondays and th only. (5mg daily the rest of the week). Bruce INR in 2 weeks., 24 tabs, 0 Refill(s) warfarin(warfarin 1 mg oral tablet) 04/11/2015 04/11/2015 See Instructions, 1 tabs with 5mg=6mg mondays and th only. (5mg daily the rest of the week). Bruce INR in 2 weeks., 24 tabs, 0 Refill(s) warfarin(warfarin 1 mg oral tablet) 04/11/2015 05/19/2015 See Instructions, 1 tabs with 5mg=6mg mondays and th only. (5mg daily the rest of the week). Bruce INR in 2 weeks., 24 tabs, 0 Refill(s) levothyroxine(levothyroxine 50 mcg (0.05 mg) oral tablet) 1 tabs 04/12/2015 05/24/2015 Oral 50 mcg 50 mcg=1 tabs, Oral, Daily, 30 tabs, 0 Refill (s) levothyroxine(levothyroxine 50 mcg (0.05 mg) oral tablet) 1 tabs 05/24/2015 12/01/2015 Oral 50 mcg 50 mcg=1 tabs, Oral, Daily, 30 tabs, 5 Refill (s) diltiazem(diltiazem 180 mg/24 hours oral tablet, extended release) 1 tabs 201511/09/2015 Oral 180 mg Voided bumetanide(bumetanide 2 mg oral tablet) 1 tabs 09/01/201511/08 Oral 2 mg Voided clotrimazole-betamethasone topical(Lotrisone 1%-0.05% topical cream) 1 daniela 09/26/2015 Topical 1 daniela, Topical, Daily sulfaSALAzine(Azulfidine 500 mg oral tablet) 1 tabs 10/05/2015 10/05/2015 Oral 500 mg 500 mg=1 tabs, Oral, TID, 90 tabs, 3 Refill(s) sulfaSALAzine(Azulfidine 500 mg oral tablet) 1 tabs 10/05/2015 Oral 500 mg 500 mg=1 tabs, Oral, TID, 90 tabs, 3 Refill(s) gabapentin(gabapentin 300 mg oral capsule) 1 caps 10/10/2015 Oral 300 mg 300 mg=1 caps, Oral, TID, 1 tab BID x 3 days, then increase 1 tab tid x 3 days, then increase to 2 tabs TID., 90 caps, 0 Refill(s) diltiazem(Cartia XT 180 mg/24 hours oral capsule, extended release) 1 caps 201506/04/2016 Oral 180 mg 180 mg=1 caps, Oral, Daily, 30 caps, 6 Refill(s) levothyroxine(levothyroxine 50 mcg (0.05 mg) oral tablet) 1 tabs 12/01/2015 06/27/2016 Oral 50 mcg 50 mcg=1 tabs, Oral, Daily, 90 day supply, 90 tabs, 1 Refill(s) lisinopril(lisinopril 5 mg oral tablet) 12/01/20152016 See Instructions, take 1 tablet daily 90 day supply, 90 tabs, 1 Refill(s ) gabapentin(gabapentin 300 mg oral capsule) 2 caps 12/01/2015 Oral 600 mg 600 mg=2 caps, Oral, TID, 180 caps, 0 Refill(s) clotrimazole-betamethasone topical(Lotrisone 1%-0.05% topical cream) 1 daniela 05/201512/05/2015 Topical 1 daniela, Topical, Daily atorvastatin(atorvastatin 10 mg oral tablet) 1 tabs 12/12/2015 12/29/2015 Oral 10 mg 10 mg=1 tabs, Oral, Daily, for 30 days, 30 tabs, 0 Refill(s ) Lactated Ringers Injection(Lactated Ringers 1,000 mL) 1,000 mL 12/29/2015 12/29/2015 IV 20 mL/hr, IV naproxen(Aleve 220 mg oral tablet) 2 tabs 12/29/2015 Oral 440 mg 440 mg=2 tabs, Oral, q8hr, 0 Refill(s) doxazosin(Cardura) 12/29/2015 12/29/2015 Oral 1 TABLET, Oral , Daily, 0 Refill(s) gabapentin(gabapentin 300 mg oral capsule) 01/24/20162015 See Instructions, TAKE TWO CAPSULES BY MOUTH THREE TIMES DAILY, 180 caps , 1 Refill(s) gabapentin(gabapentin 300 mg oral capsule) 04/08/20162015 See Instructions, TAKE TWO CAPSULES BY MOUTH THREE TIMES DAILY, 180 caps cephalexin(Keflex 500 mg oral capsule) 1 caps 04/08/20162015 Oral 500 mg 500 mg=1 caps, Oral, q6hr, for 10 days, Got while in hospital, 0 Refill(s) insulin glargine(Lantus 100 units/mL subcutaneous solution ) 04/08/2016 06/04/2016 See Instructions, INJECT 60 UNITS UNDER THE SKIN DAILY. 1 month supply., 20 mL, 5 Refill(s) gabapentin(gabapentin 300 mg oral capsule) 04/08/2016 See Instructions, TAKE TWO CAPSULES BY MOUTH THREE TIMES DAILY, 180 caps, 1 Refill(s) traZODone(traZODone 50 mg oral tablet) 1 tabs 06/07/20162016 Oral 50 mg 50 mg=1 tabs, Oral, Bedtime (once a day), for 30 days, 30 tabs, 1 Refill(s) bumetanide(bumetanide 2 mg oral tablet) 1 tabs 06/07/201601/03 Oral 2 mg 2 mg=1 tabs, Oral, BID, for 30 days, 60 tabs, 6 Refill(s) lisinopril(lisinopril 5 mg oral tablet) 06/10/2016 See Instructions, TAKE ONE TABLET BY MOUTH ONCE DAILY, 90 tabs, 1 Refill(s) levothyroxine(levothyroxine 50 mcg (0.05 mg) oral tablet) 06/27/2016 See Instructions, TAKE ONE TABLET BY MOUTH ONCE DAILY, 90 tabs, 1 Refill(s) insulin detemir(Levemir 100 units/mL subcutaneous solution ) 08/02/2016 SubCutaneous 60 units 60 units, SubCutaneous, Bedtime (once a day), 10 mL, 0 Refill(s) insulin regular(NovoLIN R 100 units/mL injectable solution ) 08/02/2016 SubCutaneous 40 units 40 units, SubCutaneous, TIDAC, before a meal, 40 mL, 1 Refill(s) Problems Date Dx Coded Attending Type Code Diagnosis Diagnosed By 03/30/2012 Final 250.80 DM2/NOS W MANIF NEC NSU 03/30/2012 Final 278.01 MORBID OBESITY 03/30/2012 Final 414.01 COR -[place] VESSEL 03/30/2012 Final 707.10 LOWER LIMB ULCER NOS 03/30/2012 Admitting 879.8 OPEN WOUND SITE NOS 02/16/2015 Pascual Edge MD. Final E13.9 Other specified diabetes mellitus without complications 02/16/2015 Pascual Edge MD Final E66.01 Morbid (severe) obesity due to excess calories 02/16/2015 Pascual Edge MD. Final I50.9 Heart failure, unspecified 02/16/2015 Pascual Edge MD. Reason I87.2 Venous insufficiency (chronic) ( peripheral) 02/16/2015 Pascual Edge MD. Final L97.819 Non-pressure chronic ulcer of other part of right lower leg with unspecifie 06/19/2015 Pascual Edge MD. Final E11.9 Type 2 diabetes mellitus without complications 06/19/2015 Pascual Edge MD. Final E66.01 Morbid (severe) obesity due to excess calories 06/19/2015 Pascual Edge MD. Final I50.9 Heart failure, unspecified 06/19/2015 Pascual Edge MD. Reason I87.2 Venous insufficiency (chronic) ( peripheral) 06/19/2015 Pascual Edge MD Final L97.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 06/28/2015 Pascual Edge MD. Reason E11.628 Type 2 diabetes mellitus with other skin complications 06/28/2015 Pascual Edge MD Final E66.01 Morbid (severe) obesity due to excess calories 06/28/2015 Pascual Edge MD. Final I50.9 Heart failure, unspecified 06/28/2015 Pascual Edge MD. Final I87.2 Venous insufficiency (chronic) ( peripheral) 06/28/2015 Pascual Edge MD. Final L97.811 Non-pressure chronic ulcer of other part of right lower leg limited to camilla 06/28/2015 Pascual Edge MD. Final L97.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 07/12/2015 Pascual Edge MD. Reason E11.622 Type 2 diabetes mellitus with other skin ulcer 07/12/2015 Pascual Edge MD. Final E66.01 Morbid (severe) obesity due to excess calories 07/12/2015 Pascual Edge MD. Final I50.9 Heart failure, unspecified 07/12/2015 Pascual Edge MD. Final I87.2 Venous insufficiency (chronic) ( peripheral) 07/12/2015 Pascual Edge MD. Final L97.811 Non-pressure chronic ulcer of other part of right lower leg limited to camilla 07/12/2015 Pascual Edge MD. Final L97.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 07/20/2015 Pascual Edge MD. Final E11.9 Type 2 diabetes mellitus without complications 07/20/2015 Pascual Edge MD. Final E66.01 Morbid (severe) obesity due to excess calories 07/20/2015 Pascual Edge MD. Final I50.9 Heart failure, unspecified 07/20/2015 Pascual Edge MD. Reason I87.2 Venous insufficiency (chronic) ( peripheral) 07/20/2015 Pascual Edge MD. Final L97.811 Non-pressure chronic ulcer of other part of right lower leg limited to camilla 07/20/2015 Pascual Edge MD. Final L97.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 08/28/2015 Pascual Edge MD. Final E11.622 Type 2 diabetes mellitus with other skin ulcer 08/28/2015 Pascual Edge MD. Final E66.01 Morbid (severe) obesity due to excess calories 08/28/2015 Pascual Edge MD. Final I50.9 Heart failure, unspecified 08/28/2015 Pascual Edge MD. Reason I87.2 Venous insufficiency (chronic) ( peripheral) 08/28/2015 Pascual Edge MD. Final L97.811 Non-pressure chronic ulcer of other part of right lower leg limited to camilla 08/28/2015 Pascual Edge MD. Final L97.921 Non-pressure chronic ulcer of unspecified part of left lower leg limited to 09/07/2015 Pascual Edge MD. Reason E11.622 Type 2 diabetes mellitus with other skin ulcer 09/07/2015 Pascual Edge MD. Final E66.01 Morbid (severe) obesity due to excess calories 09/07/2015 Pascual Edge MD. Final I50.9 Heart failure, unspecified 09/07/2015 Pascual Edge MD. Final I87.2 Venous insufficiency (chronic) ( peripheral) 09/07/2015 Pascual Edge MD. Final L97.811 Non-pressure chronic ulcer of other part of right lower leg limited to camilla 09/07/2015 Pascual Edge MD. Final L97.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 09/14/2015 Pascual Edge MD. Reason E11.622 Type 2 diabetes mellitus with other skin ulcer 09/14/2015 Pascual Edge MD. Final E66.01 Morbid (severe) obesity due to excess calories 09/14/2015 Pascual Edge MD. Final I50.9 Heart failure, unspecified 09/14/2015 Pascual Edge MD. Final I87.2 Venous insufficiency (chronic) ( peripheral) 09/14/2015 Pascual Edge MD. Final L97.811 Non-pressure chronic ulcer of other part of right lower leg limited to camilla 09/14/2015 Pascual Edge MD. Final L97.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 09/20/2015 Edge Brandon Reason E11.622 Type 2 diabetes mellitus with other skin ulcer 09/20/2015 Kely,Garciaon Final E66.01 Morbid (severe) obesity due to excess calories 09/20/2015 Kely,Garciaon Final I50.9 Heart failure, unspecified 09/20/2015 Kely,Garciaon Final I87.2 Venous insufficiency (chronic) ( peripheral) 09/20/2015 Kely, Pascual Final L97.811 Non-pressure chronic ulcer of other part of right lower leg limited to camilla 09/20/2015 Kely,Garciaon Final L97.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 09/27/2015 Kely,Garciaon Reason E11.622 Type 2 diabetes mellitus with other skin ulcer 09/27/2015 Kely,Garciaon Final E66.01 Morbid (severe) obesity due to excess calories 09/27/2015 Kely,Garciaon Final I50.9 Heart failure, unspecified 09/27/2015 Kely,Garciaon Final I87.2 Venous insufficiency (chronic) ( peripheral) 09/27/2015 Kely,Garciaon Final L97.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 10/06/2015 Kely, Pascual Final E11.622 Type 2 diabetes mellitus with other skin ulcer 10/06/2015 Kely,Garciaon Final E66.01 Morbid (severe) obesity due to excess calories 10/06/2015 Kely,Garciaon Final I50.9 Heart failure, unspecified 10/06/2015 Kely,Garciaon Final I87.2 Venous insufficiency (chronic) ( peripheral) 10/06/2015 Kely,Garciaon Final L97.819 Non-pressure chronic ulcer of other part of right lower leg with unspecifie 10/06/2015 Kely,Pascual Reason Z48.01 Encounter for change or removal of surgical wound dressing 10/11/2015 Kely,Pascual Reason E11.622 Type 2 diabetes mellitus with other skin ulcer 10/11/2015 Kely,Garciaon Final E66.01 Morbid (severe) obesity due to excess calories 10/11/2015 Kely,Garciaon Final I50.9 Heart failure, unspecified 10/11/2015 Kely,Garciaon Final I87.2 Venous insufficiency (chronic) ( peripheral) 10/11/2015 Kely,, Pascual Final L97.811 Non-pressure chronic ulcer of other part of right lower leg limited to camilla 10/11/2015 Kely,, Pascual Final L97.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 10/30/2015 Kely,, Pascual Reason E11.622 Type 2 diabetes mellitus with other skin ulcer 10/30/2015 Kely,, Pascual Final I87.2 Venous insufficiency (chronic) ( peripheral) 10/30/2015 Kely,, Pascual Final L97.919 Non-pressure chronic ulcer of unspecified part of right lower leg with unsp 11/01/2015 Kely,, Pascual Reason L97.811 Non-pressure chronic ulcer of other part of right lower leg limited to camilla 11/16/2015 Kely,, Pascual Reason E11.622 Type 2 diabetes mellitus with other skin ulcer 11/16/2015 Kely, Pascual Final E66.01 Morbid (severe) obesity due to excess calories 11/16/2015 Kely,, Pascual Final I50.9 Heart failure, unspecified 11/16/2015 Kely,, Pascual Final I87.2 Venous insufficiency (chronic) ( peripheral) 11/16/2015 Kely,, Pascual Final L97.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 11/30/2015 Kely,, Pascual Reason E11.622 Type 2 diabetes mellitus with other skin ulcer 11/30/2015 Kely,, Pascual Final E66.01 Morbid (severe) obesity due to excess calories 11/30/2015 Kely,, Pascual Final I50.9 Heart failure, unspecified 11/30/2015 Kely,, Pascual Final I87.2 Venous insufficiency (chronic) ( peripheral) 11/30/2015 Kely,, Pascual Final L97.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 12/06/2015 Kely,, Pascual Reason E11.622 Type 2 diabetes mellitus with other skin ulcer 12/06/2015 Kely,, Pascual Final E66.01 Morbid (severe) obesity due to excess calories 12/06/2015 Kely,, Pascual Final I50.9 Heart failure, unspecified 12/06/2015 Edge Brandon Final I87.2 Venous insufficiency (chronic) ( peripheral) 12/06/2015 Edge Brandon Final L97.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 01/09/2016 Cecilio Padilla Reason E11.628 Type 2 diabetes mellitus with other skin complications 01/09/2016 Cecilio Padilla Final E66.01 Morbid (severe) obesity due to excess calories 01/09/2016 Cecilio Padilla Final I50.9 Heart failure, unspecified 01/09/2016 Cecilio Padilla Final I87.2 Venous insufficiency (chronic) (peripheral) 01/09/2016 Cecilio Padilla Final L97.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 01/09/2016 Cecilio Padilla Final Z86.718 Personal history of other venous thrombosis and embolism 01/18/2016 Cecilio Padilla Reason E11.628 Type 2 diabetes mellitus with other skin complications 01/18/2016 Cecilio Padilla Final E66.01 Morbid (severe) obesity due to excess calories 01/18/2016 Cecilio Padilla Final I50.9 Heart failure, unspecified 01/18/2016 Cecilio Padilla Final I87.2 Venous insufficiency (chronic) (peripheral) 01/18/2016 Cecilio Padilla Final L97.829 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 lower leg with unspecified 01/19/2016 Edge Brandon Reason E11.628 Type 2 diabetes mellitus with other skin complications 01/19/2016 Edge Brandon Final E66.01 Morbid (severe) obesity due to excess calories 01/19/2016 Edge Brandon Final I50.9 Heart failure, unspecified 01/19/2016 Edge Brandon Final I87.2 Venous insufficiency (chronic) ( peripheral) 01/19/2016 Edge Brandon Final L97.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 02/12/2016 Cecilio Padilla Reason E11.628 Type 2 diabetes mellitus with other skin complications 02/12/2016 Cecilio Padilla Final E66.01 Morbid (severe) obesity due to excess calories 02/12/2016 Cecilio Padilla Final I50.9 Heart failure, unspecified 02/12/2016 Cecilio Padilla Final I87.2 Venous insufficiency (chronic) (peripheral) 02/12/2016 Cecilio Padilla Final L97.829 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 lower leg with unspecified 02/14/2016 Cecilio Padilla Reason E11.628 Type 2 diabetes mellitus with other skin complications 02/14/2016 Cecilio Padilla Final E66.01 Morbid (severe) obesity due to excess calories 02/14/2016 Cecilio Padilla Final I50.9 Heart failure, unspecified 02/14/2016 Cecilio Padilla Final I87.2 Venous insufficiency (chronic) (peripheral) 02/14/2016 Cecilio Padilla Final L97.829 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 lower leg with unspecified 02/21/2016 Cecilio Padilla Reason E11.628 Type 2 diabetes mellitus with other skin complications 02/21/2016 Cecilio Padilla Final I50.9 Heart failure, unspecified 02/21/2016 eCcilio Padilla Final I87.2 Venous insufficiency (chronic) (peripheral) 02/21/2016 Cecilio Padilla Final L97.829 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 lower leg with unspecified 02/21/2016 Cecilio Padilla Final Z86.718 Personal history of other venous thrombosis and embolism 03/05/2016 Cecilio Padilla Reason E11.622 Type 2 diabetes mellitus with other skin ulcer 03/05/2016 Cecilio Padilla Final E66.01 Morbid (severe) obesity due to excess calories 03/05/2016 Cecilio Padilla Final I87.2 Venous insufficiency (chronic) (peripheral) 03/05/2016 Cecilio Padilla Final L97.829 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 lower leg with unspecified 03/14/2016 Cecilio Padilla Reason E11.621 Type 2 diabetes mellitus with foot ulcer 03/14/2016 Cecilio Padilla Final E66.01 Morbid (severe) obesity due to excess calories 03/14/2016 Cecilio Padilla Final I50.9 Heart failure, unspecified 03/14/2016 Cecilio Padilla Final I87.2 Venous insufficiency (chronic) (peripheral) 03/14/2016 Cecilio Padilla Final L97.521 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 foot limited to breakdown 03/20/2016 Cecilio Padilla Final E11.622 Type 2 diabetes mellitus with other skin ulcer 03/20/2016 Cecilio Padilla Final I50.9 Heart failure, unspecified 03/20/2016 Cecilio Padilla Reason I87.2 Venous insufficiency (chronic) (peripheral ) 03/20/2016 Cecilio Padilla Final L97.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 03/20/2016 Cecilio Padilla Final L97.829 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 lower leg with unspecified 03/20/2016 Cecilio Padilla Final Z86.718 Personal history of other venous thrombosis and embolism 03/27/2016 Cecilio Padilla Reason E11.622 Type 2 diabetes mellitus with other skin ulcer 03/27/2016 Cecilio Padilla Final I50.9 Heart failure, unspecified 03/27/2016 Cecilio Padilla Final I87.2 Venous insufficiency (chronic) (peripheral) 03/27/2016 Cecilio Padilla Final L97.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 03/27/2016 Cecilio Padilla Final Z86.718 Personal history of other venous thrombosis and embolism 04/16/2016 Cecilio Padilla Reason E11.622 Type 2 diabetes mellitus with other skin ulcer 04/16/2016 Cecilio Padilla Final E66.01 Morbid (severe) obesity due to excess calories 04/16/2016 Cecilio Padilla Final I50.9 Heart failure, unspecified 04/16/2016 Cecilio Padilla Final I87.2 Venous insufficiency (chronic) (peripheral) 04/16/2016 Cecilio Padilla Final L97.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 04/18/2016 Cecilio Padilla Reason E11.622 Type 2 diabetes mellitus with other skin ulcer 04/18/2016 Cecilio Padilla Final E66.01 Morbid (severe) obesity due to excess calories 04/18/2016 Cecilio Padilla Final I50.9 Heart failure, unspecified 04/18/2016 Cecilio Padilla Final I87.2 Venous insufficiency (chronic) (peripheral) 04/18/2016 Cecilio Padilla Final L97.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 05/15/2016 Cecilio Padilla Reason E11.628 Type 2 diabetes mellitus with other skin complications 05/15/2016 Cecilio Padilla Final E66.01 Morbid (severe) obesity due to excess calories 05/15/2016 Cecilio Padilla Final I87.2 Venous insufficiency (chronic) (peripheral) 05/15/2016 Cecilio Padilla Final L97.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 05/29/2016 Cecilio Padilla Final E11.622 Type 2 diabetes mellitus with other skin ulcer 05/29/2016 Cecilio Padilla Final E66.01 Morbid (severe) obesity due to excess calories 05/29/2016 Cecilio Padilla Final I50.9 Heart failure, unspecified 05/29/2016 Cecilio Padilla Reason I87.2 Venous insufficiency (chronic) (peripheral ) 05/29/2016 Cecilio Padilla Final L97.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 05/29/2016 Cecilio Padilla Final L97.829 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 lower leg with unspecified 05/29/2016 Cecilio Padilla Final Z86.718 Personal history of other venous thrombosis and embolism 06/04/2016 Cecilio Padilla Reason E11.622 Type 2 diabetes mellitus with other skin ulcer 06/04/2016 Cecilio Padilla Final I50.9 Heart failure, unspecified 06/04/2016 Cecilio Padilla Final I87.2 Venous insufficiency (chronic) (peripheral) 06/04/2016 Cecilio Padilla Final L97.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 06/12/2016 Stanley Rowland Reason E11.622 Type 2 diabetes mellitus with other skin ulcer 06/12/2016 Stanley Rowland Final E66.01 Morbid (severe) obesity due to excess calories 06/12/2016 Stanley Rowland Final I50.9 Heart failure, unspecified 06/12/2016 Stanley Rowland Final I87.2 Venous insufficiency (chronic) (peripheral ) 06/12/2016 Stanley Rowland Final L97.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 06/12/2016 Stanley Rowland Final Z86.718 Personal history of other venous thrombosis and embolism 06/26/2016 Stanley Rowland Reason E11.622 Type 2 diabetes mellitus with other skin ulcer 06/26/2016 Stanley Rowland Final E66.01 Morbid (severe) obesity due to excess calories 06/26/2016 Stanley Rowland Final I50.9 Heart failure, unspecified 06/26/2016 Stanley Rowland Final I87.2 Venous insufficiency (chronic) (peripheral ) 06/26/2016 Stanley Rowland Final L97.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 06/26/2016 Stanley Rowland Final S81.802A Unspecified open wound, left lower leg, initial encounter 06/26/2016 Stanley Rowland Final Z79.4 care home (current) use of insulin 07/29/2016 Stanley Rowland Reason Z09 Encounter for follow-up examination after completed treatment for condition Procedures Results Test Result Range Protime (INR) - 10/09/15 11:48 INR 1.9 NA 0.9-1.2 Basic Metabolic Panel (BMP) - 10/09/15 11:48 Anion Gap 8 NA 3-20 BUN 23 mg/dL 8-26 Calcium 8.5 mg/dL 8.9-10.5 Chloride 104 mEq/L 99-111 CO2 26 mEq/L 23-31 Creatinine 0.87 mg/dL 0.72-1.25 Glucose 173 mg/dL 70-99 Potassium 4.8 mEq/L 3.5-5.2 Sodium 138 mEq/L 135-144 eGFR - 10/09/15 11:48 eGFR >60 mL/min >60 Hemoglobin A1C - 11/09/15 14:25 Hemoglobin A1C 7.6 % 4.1-5.6 Estimated Average Glucose - 11/09/15 14:25 Estimated Average Glucose 171.4 mg/dL Protime (INR) - 12/11/15 15:33 INR 1.9 NA 0.9-1.2 Lipid Panel - 12/11/15 15:33 Cardiac Risk 4.7 0.0-5.7 Cholesterol 215 mg/dL 0-199 HDL Cholesterol 46 mg/dL 40-84 LDL Cholesterol 140 mg/dL 0-130 Triglycerides 147 mg/dL 0-149 VLDL Cholesterol 29 mg/dL 0-28 HIV Antigen/Antibody Combo - 12/11/15 15:33 HIV Antigen/Antibody Combo Negative NA Hepatitis C Total Antibody - 12/11/15 15:33 Hepatitis C Total Antibody Negative Protime (INR) - 02/08/16 14:44 INR 1.5 NA 0.9-1.2 Hemoglobin A1C - 02/08/16 14:44 Hemoglobin A1C 7.6 % 4.1-5.6 Estimated Average Glucose - 02/08/16 14:44 Estimated Average Glucose 171.4 mg/dL Protime (INR) - 04/08/16 15:30 INR 2.0 NA 0.9-1.2 CBC With Platelet No Differential - 04/08/16 15:30 HCT 35.1 % 42.0-52.0 HGB 11.0 g/dL 14.0-18.0 MCH 27.0 pg 27.0-32.0 MCHC 31.3 g/dL 32.0-36.0 MCV 86.0 fL 82.0-99.0 MPV 10.5 fL 8.8-14.8 Platelet Count 290 K/uL 150-400 RBC 4.08 10*6/uL 4.60-6.20 RDW 13.9 % 11.5-14.5 WBC 8.6 K/uL 4.8-10.8 Renal Function Panel - 04/08/16 15:30 Albumin 3.3 g/dL 3.4-4.8 Anion Gap 10 NA 3-20 BUN 29 mg/dL 8-26 Calcium 8.5 mg/dL 8.9-10.5 Chloride 102 mEq/L 99-111 CO2 27 mEq/L 23-31 Creatinine 1.12 mg/dL 0.72-1.25 Glucose 135 mg/dL 70-99 Phosphorus 3.1 mg/dL 2.3-4.7 Potassium 4.8 mEq/L 3.5-5.2 Sodium 139 mEq/L 135-144 Magnesium - 04/08/16 15:30 Magnesium 1.9 mg/dL 1.6-2.6 eGFR - 04/08/16 15:30 eGFR >60 mL/min >60 Encounters ACCT No. Visit Date/Time Discharge Status Pt. Type Provider Facility Loc./Unit Complaint [id number] 10/05/2012 07:00:00 2012 23:59:59 CLS Outpatient Lul Adkins MD [facility] [id number] 03/30/2012 12:25:00 2011 23:59:59 CLS Outpatient [id number] 01/09/2012 09:16:00 2011 23:59:59 CLS Outpatient Lul Adkins MD [facility]
--- OUTSIDE RECORDS SUMMARY | 2016-09-05 15:57 | XMS REPORT | Referral Summary ---
Author Author [facility] Organization [facility] Address Unknown Phone Unavailable Care Team Providers Care Forging Press Lever Tender Name Role Phone KashifKimo Primary Care Physician [phone] Encounter VC Date(s): 04/15/16 - 04/15/16 [facility] [address] [place] [address] [phone] Discharge Disposition: 01-Home or Self Care Attending [...] Active patient cholesterol(Confirme d) Hypothyroidism(Confi Active rmed) [place] (myocardial Active patient infarction)(Confirme d)1 Morbid obesity [...] TID, # 90 tabs, 3 Refill(s), Pharmacy: [facility], 1 tabs Oral TID [...] DAILY, # 180 caps, 1 Refill(s), Pharmacy: [facility], TAKE TWO CAPSULES BY MOUTH THREE TIMES DAILY Start Date: 04/08/16 Status: Ordered garlic oral tablet 1,000 mg, Oral, Daily, 0 Refill(s) Start Date: 04/06/14 Status: Ordered isosorbide mononitrate 60 mg oral tablet, extended release 60 mg 1 tabs, Oral, qAM, # 30 tabs, 6 Refill(s), Pharmacy: [facility], 1 tabs Oral qAM Start Date: 12/29/15 Status: Ordered Keflex 500 mg oral capsule 500 mg 1 caps, Oral, q6hr, Got while in hospital, 0 Refill(s) Start Date: 04/08/16 Stop Date: 04/18/16 Status: Ordered Lantus 100 units/mL subcutaneous solution See Instructions, INJECT 60 UNITS UNDER THE SKIN DAILY. 1 month supply., # 20 mL , 5 Refill(s), Pharmacy: [facility], INJECT 60 UNITS UNDER THE SKIN DAILY. 1 month supply. Start Date: 04/08/16 Status: Ordered levothyroxine 50 mcg (0.05 mg) oral tablet 50 mcg 1 tabs, Oral, Daily, 90 day supply, # 90 tabs, 1 Refill(s), Pharmacy: [facility], 1 tabs Oral Daily,Instr:90 day supply Start Date: 12/01/15 Status: Ordered lisinopril 5 mg oral tablet See Instructions, take 1 tablet daily 90 day supply, # 90 tabs, 1 Refill(s), Pharmacy: [facility], take 1 tablet daily 90 day supply Start Date: 12/01/15 Status: Ordered melatonin 5 mg oral tablet 1 tabs, Oral, Bedtime (once a day), as needed for insomnia, # 60 tabs, 0 Refill( s) Start Date: 10/19/13 Status: Ordered metFORMIN 1000 mg oral tablet 1 tabs, Oral, BID, # 60 tabs, 5 Refill(s), Pharmacy: [facility], 1 tabs Oral BID Start Date: 08/01/14 Status: Ordered metoprolol tartrate 100 mg oral tablet 100 mg 1 tabs, Oral, BID, # 60 tabs, 3 Refill(s), Pharmacy: [facility] Start Date: 04/11/16 Stop Date: 08/09/16 Status: Ordered Metoprolol Tartrate 50 mg oral tablet See Instructions, 1 tabs Oral BID 90 day supply, # 180 tabs, 0 Refill(s), Pharmacy: [facility], 1 tabs Oral BID 90 day supply Start Date: 02/02/16 Status: Ordered Miscellaneous DME DME Item Power wheelchair, [employer] 89 yrs, Dx Morobid Obesity, Chronic deconditioning. [...] Oral, BID, # 60 tabs, 3 Refill(s), other reason (Rx), 2 tabs Oral BID Start Date: 04/11/16 Stop Date: 08/09/16 Status: Ordered torsemide 20 mg oral tablet 2 tabs, Oral, Daily, # 60 tabs, 3 Refill(s), Pharmacy: [facility], 2 tabs Oral Daily Start Date: 09/07/14 Status: Ordered warfarin 5 mg oral tablet 5 mg 1 tabs, Oral, Daily, # 90 tabs, 1 Refill(s), Pharmacy: [facility], 1 tabs Oral Daily Start Date: 03/08/16 Status: Ordered Results No data available for this section Immunizations Given and Recorded Vaccine Date Status Refusal Reason pneumococcal 23-polyvalent vaccine 05/17/09 Recorded Procedures Procedure Date Related Diagnosis Body Site Application of multi-layer compression 04/15/16 system; leg (below knee), including ankle and foot Colonoscopy1 12/29/15 Procedure with Anesthesia2 12/29/15 gallbladder hand3 lower leg4 tonsils 1auto-populated from documented surgical case 2auto-populated from documented surgical case 3right hand fifth finger 4right with hardware Social History Social History Type Response Smoking Status Never smoker Assessment and Plan No data available for this section
--- OUTSIDE RECORDS SUMMARY | 2016-09-05 15:58 | XMS REPORT | Referral Summary ---
Author Author [facility] Organization [facility] Address Unknown Phone Unavailable Care Team Providers Care Soft Sugar Operator Head Name Role Phone KashifKimo Primary Care Physician [phone] Encounter VC Date(s): 02/19/16 - 02/19/16 [facility] [address] [place] [address] Discharge Disposition: 01-Home or Self Care Attending [...] Active patient cholesterol(Confirme d) Hypothyroidism(Confi Active rmed) [place] (myocardial Active patient infarction)(Confirme d)1 Morbid obesity [...] TID, # 90 tabs, 3 Refill(s), Pharmacy: [facility], 1 tabs Oral TID Start [...] DAILY, # 180 caps, 1 Refill(s), eRx: [facility], TAKE TWO CAPSULES BY MOUTH THREE TIMES DAILY Start Date: 01/24/16 Status: Ordered garlic oral tablet 1,000 mg, Oral, Daily, 0 Refill(s) Start Date: 04/06/14 Status: Ordered isosorbide mononitrate 60 mg oral tablet, extended release 60 mg 1 tabs, Oral, qAM, # 30 tabs, 6 Refill(s), Pharmacy: [facility], 1 tabs Oral qAM Start Date: 12/29/15 Status: Ordered Lantus 100 units/mL subcutaneous solution See Instructions, INJECT 60 UNITS UNDER THE SKIN DAILY. 1 month supply., # 20 mL , 5 Refill(s), Pharmacy: [facility], INJECT 60 UNITS UNDER THE SKIN DAILY. 1 month supply. Start Date: 07/03/15 Status: Ordered levothyroxine 50 mcg (0.05 mg) oral tablet 50 mcg 1 tabs, Oral, Daily, 90 day supply, # 90 tabs, 1 Refill(s), Pharmacy: [facility], 1 tabs Oral Daily,Instr:90 day supply Start Date: 12/01/15 Status: Ordered lisinopril 5 mg oral tablet See Instructions, take 1 tablet daily 90 day supply, # 90 tabs, 1 Refill(s), Pharmacy: [facility], take 1 tablet daily 90 day supply Start Date: 12/01/15 Status: Ordered melatonin 5 mg oral tablet 1 tabs, Oral, Bedtime (once a day), as needed for insomnia, # 60 tabs, 0 Refill( s) Start Date: 10/19/13 Status: Ordered metFORMIN 1000 mg oral tablet 1 tabs, Oral, BID, # 60 tabs, 5 Refill(s), Pharmacy: [facility], 1 tabs Oral BID Start Date: 08/01/14 Status: Ordered Metoprolol Tartrate 50 mg oral tablet See Instructions, 1 tabs Oral BID 90 day supply, # 180 tabs, 0 Refill(s), Pharmacy: [facility], 1 tabs Oral BID 90 [...] BID, # 120 tabs, 3 Refill(s), Pharmacy: [facility], 2 tabs Oral BID Start Date: 03/29/15 Status: Ordered torsemide 20 mg oral tablet 2 tabs, Oral, Daily, # 60 tabs, 3 Refill(s), Pharmacy: [facility], 2 tabs Oral Daily Start Date: 09/07/14 Status: Ordered warfarin 5 mg oral tablet 5 mg 1 tabs, Oral, Daily, # 90 tabs, 1 Refill(s), 1 tabs Oral Daily Start Date: 07/03/15 Status: Ordered Results No data available for this section Immunizations Vaccine Date Refusal Reason pneumococcal 23-polyvalent vaccine 05/17/09 Procedures Procedure Date Related Diagnosis Body Site Application of multi-layer compression 02/19/16 system; leg (below knee), including ankle and foot Colonoscopy1 12/29/15 Procedure with Anesthesia2 12/29/15 gallbladder hand3 lower leg4 tonsils 1auto-populated from documented surgical case 2auto-populated from documented surgical case 3right hand fifth finger 4right with hardware Social History Social History Type Response Smoking Status Never smoker Assessment and Plan No data available for this section
--- OUTSIDE RECORDS SUMMARY | 2016-09-05 15:58 | XMS REPORT | Referral Summary ---
Author Author [facility] Organization [facility] Address Unknown Phone Unavailable Care Team Providers Care Insurance Coordinator Name Role Phone Kashif, Kimo Primary Care Physician [phone] Encounter VC Date(s): 06/03/16 - 06/03/16 [facility] [address] [place] [address] [phone] Discharge Disposition: 01-Home or Self Care Attending [...] TID, # 90 tabs, 3 Refill(s), Pharmacy: [facility], 1 tabs Oral TID [...] DAILY, # 180 caps, 1 Refill(s), Pharmacy: [facility], TAKE TWO CAPSULES BY MOUTH THREE TIMES DAILY Start Date: 04/08/16 Status: Ordered garlic oral tablet 1,000 mg, Oral, Daily, 0 Refill(s) Start Date: 04/06/14 Status: Ordered HumaLOG 100 units/mL subcutaneous solution See Instructions, 0.35 mL SubCutaneous TIDAC E11.9, # 31.5 mL, 6 Refill(s), Pharmacy: [facility], 0.35 mL SubCutaneous TIDAC; E11.9 Start Date: 05/14/16 Status: Ordered isosorbide mononitrate 60 mg oral tablet, extended release 60 mg 1 tabs, Oral, qAM, # 30 tabs, 6 Refill(s), Pharmacy: [facility], 1 tabs Oral qAM Start Date: 12/29/15 Status: Ordered Keflex 500 mg oral capsule 500 mg 1 caps, Oral, q6hr, Got while in hospital, 0 Refill(s) Start Date: 04/08/16 Stop Date: 04/18/16 Status: Ordered Lantus 100 units/mL subcutaneous solution See Instructions, INJECT 60 UNITS UNDER THE SKIN DAILY. 1 month supply., # 20 mL , 5 Refill(s), Pharmacy: [facility], INJECT 60 UNITS UNDER THE SKIN DAILY. 1 month supply. Start Date: 04/08/16 Status: Ordered levothyroxine 50 mcg (0.05 mg) oral tablet 50 mcg 1 tabs, Oral, Daily, 90 day supply, # 90 tabs, 1 Refill(s), Pharmacy: [facility], 1 tabs Oral Daily,Instr:90 day supply Start Date: 12/01/15 Status: Ordered lisinopril 5 mg oral tablet See Instructions, take 1 tablet daily 90 day supply, # 90 tabs, 1 Refill(s), Pharmacy: [facility], take 1 tablet daily 90 day supply Start Date: 12/01/15 Status: Ordered melatonin 5 mg oral tablet 1 tabs, Oral, Bedtime (once a day), as needed for insomnia, # 60 tabs, 0 Refill( s) Start Date: 10/19/13 Status: Ordered metFORMIN 1000 mg oral tablet 1 tabs, Oral, BID, # 60 tabs, 5 Refill(s), Pharmacy: [facility], 1 tabs Oral BID Start Date: 08/01/14 Status: Ordered metoprolol tartrate 100 mg oral tablet 100 mg 1 tabs, Oral, BID, # 60 tabs, 3 Refill(s), Pharmacy: [facility] Start Date: 04/11/16 Stop Date: 08/09/16 Status: Ordered Metoprolol Tartrate 50 mg oral tablet See Instructions, 1 tabs Oral BID 90 day supply, # 180 tabs, 0 Refill(s), Pharmacy: [facility], 1 tabs Oral BID [...] Daily, # 60 tabs, 3 Refill(s), Pharmacy: [facility], 2 tabs Oral Daily Start Date: 09/07/14 Status: Ordered warfarin 5 mg oral tablet 5 mg 1 tabs, Oral, Daily, # 90 tabs, 1 Refill(s), Pharmacy: [facility], 1 tabs Oral Daily Start Date: 03/08/16 Status: Ordered Results No data available for this section Immunizations Given and Recorded Vaccine Date Status Refusal Reason pneumococcal 23-polyvalent vaccine 05/17/09 Recorded Procedures Procedure Date Related Diagnosis Body Site Application of multi-layer compression 06/03/16 system; leg (below knee), including ankle and foot Colonoscopy1 12/29/15 Procedure with Anesthesia2 12/29/15 gallbladder hand3 lower leg4 tonsils 1auto-populated from documented surgical case 2auto-populated from documented surgical case 3right hand fifth finger 4right with hardware Social History Social History Type Response Smoking Status Never smoker Assessment and Plan No data available for this section
--- OUTSIDE RECORDS SUMMARY | 2016-09-05 15:58 | XMS REPORT | Referral Summary ---
Author Author [facility] Organization [facility] Address Unknown Phone Unavailable Care Team Providers Care Radio Announcer Name Role Phone KashifKimo Primary Care Physician [phone] Encounter VC Date(s): 02/12/16 - 02/12/16 [facility] [address] [place] [address] Discharge Disposition: 01-Home or Self Care Attending [...] TID, # 90 tabs, 3 Refill(s), Pharmacy: [facility], 1 tabs Oral TID [...] DAILY, # 180 caps, 1 Refill(s), eRx: [facility], TAKE TWO CAPSULES BY MOUTH THREE TIMES DAILY Start Date: 01/24/16 Status: Ordered garlic oral tablet 1,000 mg, Oral, Daily, 0 Refill(s) Start Date: 04/06/14 Status: Ordered isosorbide mononitrate 60 mg oral tablet, extended release 60 mg 1 tabs, Oral, qAM, # 30 tabs, 6 Refill(s), Pharmacy: [facility], 1 tabs Oral qAM Start Date: 12/29/15 Status: Ordered Lantus 100 units/mL subcutaneous solution See Instructions, INJECT 60 UNITS UNDER THE SKIN DAILY. 1 month supply., # 20 mL , 5 Refill(s), Pharmacy: [facility], INJECT 60 UNITS UNDER THE SKIN DAILY. 1 month supply. Start Date: 07/03/15 Status: Ordered levothyroxine 50 mcg (0.05 mg) oral tablet 50 mcg 1 tabs, Oral, Daily, 90 day supply, # 90 tabs, 1 Refill(s), Pharmacy: [facility], 1 tabs Oral Daily,Instr:90 day supply Start Date: 12/01/15 Status: Ordered lisinopril 5 mg oral tablet See Instructions, take 1 tablet daily 90 day supply, # 90 tabs, 1 Refill(s), Pharmacy: [facility], take 1 tablet daily 90 day supply Start Date: 12/01/15 Status: Ordered melatonin 5 mg oral tablet 1 tabs, Oral, Bedtime (once a day), as needed for insomnia, # 60 tabs, 0 Refill( s) Start Date: 10/19/13 Status: Ordered metFORMIN 1000 mg oral tablet 1 tabs, Oral, BID, # 60 tabs, 5 Refill(s), Pharmacy: [facility], 1 tabs Oral BID Start Date: 08/01/14 Status: Ordered Metoprolol Tartrate 50 mg oral tablet See Instructions, 1 tabs Oral BID 90 day supply, # 180 tabs, 0 Refill(s), Pharmacy: [facility], 1 tabs Oral BID [...] BID, # 120 tabs, 3 Refill(s), Pharmacy: [facility], 2 tabs Oral BID Start Date: 03/29/15 Status: Ordered torsemide 20 mg oral tablet 2 tabs, Oral, Daily, # 60 tabs, 3 Refill(s), Pharmacy: [facility], 2 tabs Oral Daily [...] Diagnosis Body Site Application of multi-layer compression 02/12/16 system; leg (below knee), including ankle and foot Colonoscopy1 12/29/15 Procedure with Anesthesia2 12/29/15 gallbladder hand3 lower leg4 tonsils 1auto-populated from documented surgical case 2auto-populated from documented surgical case 3right hand fifth finger 4right with hardware Social History Social History Type Response Smoking Status Never smoker Assessment and Plan No data available for this section
--- OUTSIDE RECORDS SUMMARY | 2016-09-05 15:58 | XMS REPORT | Referral Summary ---
Author Author [facility] Organization [facility] Address Unknown Phone Unavailable Care Team Providers Care Rn Dermatology Name Role Phone KashifKimo Primary Care Physician [phone] Encounter VC Date(s): 03/25/16 - 03/25/16 [facility] [address] [place] [address] Discharge Disposition: 01-Home or Self Care Attending [...] Active patient cholesterol(Confirme d) Hypothyroidism(Confi Active rmed) [place] (myocardial Active patient infarction)(Confirme d)1 Morbid obesity [...] TID, # 90 tabs, 3 Refill(s), Pharmacy: [facility], 1 tabs Oral TID [...] DAILY, # 180 caps, 1 Refill(s), eRx: [facility], TAKE TWO CAPSULES BY MOUTH THREE TIMES DAILY Start Date: 01/24/16 Status: Ordered garlic oral tablet 1,000 mg, Oral, Daily, 0 Refill(s) Start Date: 04/06/14 Status: Ordered isosorbide mononitrate 60 mg oral tablet, extended release 60 mg 1 tabs, Oral, qAM, # 30 tabs, 6 Refill(s), Pharmacy: [facility] 242, 1 tabs Oral qAM Start Date: 12/29/15 Status: Ordered Lantus 100 units/mL subcutaneous solution See Instructions, INJECT 60 UNITS UNDER THE SKIN DAILY. 1 month supply., # 20 mL , 5 Refill(s), Pharmacy: [facility]28, INJECT 60 UNITS UNDER THE SKIN DAILY. 1 month supply. Start Date: 07/03/15 Status: Ordered levothyroxine 50 mcg (0.05 mg) oral tablet 50 mcg 1 tabs, Oral, Daily, 90 day supply, # 90 tabs, 1 Refill(s), Pharmacy: [facility], 1 tabs Oral Daily,Instr:90 day supply Start Date: 12/01/15 Status: Ordered lisinopril 5 mg oral tablet See Instructions, take 1 tablet daily 90 day supply, # 90 tabs, 1 Refill(s), Pharmacy: [facility], take 1 tablet daily 90 day supply Start Date: 12/01/15 Status: Ordered melatonin 5 mg oral tablet 1 tabs, Oral, Bedtime (once a day), as needed for insomnia, # 60 tabs, 0 Refill( s) Start Date: 10/19/13 Status: Ordered metFORMIN 1000 mg oral tablet 1 tabs, Oral, BID, # 60 tabs, 5 Refill(s), Pharmacy: [facility], 1 tabs Oral BID Start Date: 08/01/14 Status: Ordered Metoprolol Tartrate 50 mg oral tablet See Instructions, 1 tabs Oral BID 90 day supply, # 180 tabs, 0 Refill(s), Pharmacy: [facility], 1 tabs Oral BID [...] BID, # 120 tabs, 3 Refill(s), Pharmacy: [facility], 2 tabs Oral BID Start Date: 03/29/15 Status: Ordered torsemide 20 mg oral tablet 2 tabs, Oral, Daily, # 60 tabs, 3 Refill(s), Pharmacy: [facility], 2 tabs Oral Daily Start Date: 09/07/14 Status: Ordered warfarin 5 mg oral tablet 5 mg 1 tabs, Oral, Daily, # 90 tabs, 1 Refill(s), Pharmacy: [facility], 1 tabs Oral Daily Start Date: 03/08/16 Status: Ordered Results No data available for this section Immunizations Vaccine Date Refusal Reason pneumococcal 23-polyvalent vaccine 05/17/09 Procedures Procedure Date Related Diagnosis Body Site Application of multi-layer compression 03/25/16 system; leg (below knee), including ankle and foot Colonoscopy1 12/29/15 Procedure with Anesthesia2 12/29/15 gallbladder hand3 lower leg4 tonsils 1auto-populated from documented surgical case 2auto-populated from documented surgical case 3right hand fifth finger 4right with hardware Social History Social History Type Response Smoking Status Never smoker Assessment and Plan No data available for this section
--- OUTSIDE RECORDS SUMMARY | 2016-09-05 15:59 | XMS REPORT | Referral Summary ---
Author Author [facility] Organization [facility] Address Unknown Phone Unavailable Care Team Providers Care Generating Plant Superintendent Name Role Phone KashifKimo Primary Care Physician [phone] Encounter VC Date(s): 04/08/16 - 04/08/16 [facility] [address] [place] [address] [phone] Discharge Disposition: 01-Home or Self Care Attending [...] Active patient cholesterol(Confirme d) Hypothyroidism(Confi Active rmed) [place] (myocardial Active patient infarction)(Confirme d)1 Morbid obesity [...] TID, # 90 tabs, 3 Refill(s), Pharmacy: [facility], 1 tabs Oral TID [...] DAILY, # 180 caps, 1 Refill(s), Pharmacy: [facility], TAKE TWO CAPSULES BY MOUTH THREE TIMES DAILY Start Date: 04/08/16 Status: Ordered garlic oral tablet 1,000 mg, Oral, Daily, 0 Refill(s) Start Date: 04/06/14 Status: Ordered isosorbide mononitrate 60 mg oral tablet, extended release 60 mg 1 tabs, Oral, qAM, # 30 tabs, 6 Refill(s), Pharmacy: [facility], 1 tabs Oral qAM Start Date: 12/29/15 Status: Ordered Keflex 500 mg oral capsule 500 mg 1 caps, Oral, q6hr, Got while in hospital, 0 Refill(s) Start Date: 04/08/16 Stop Date: 04/18/16 Status: Ordered Lantus 100 units/mL subcutaneous solution See Instructions, INJECT 60 UNITS UNDER THE SKIN DAILY. 1 month supply., # 20 mL , 5 Refill(s), Pharmacy: [facility], INJECT 60 UNITS UNDER THE SKIN DAILY. 1 month supply. Start Date: 04/08/16 Status: Ordered levothyroxine 50 mcg (0.05 mg) oral tablet 50 mcg 1 tabs, Oral, Daily, 90 day supply, # 90 tabs, 1 Refill(s), Pharmacy: [facility], 1 tabs Oral Daily,Instr:90 day supply Start Date: 12/01/15 Status: Ordered lisinopril 5 mg oral tablet See Instructions, take 1 tablet daily 90 day supply, # 90 tabs, 1 Refill(s), Pharmacy: [facility], take 1 tablet daily 90 day supply Start Date: 12/01/15 Status: Ordered melatonin 5 mg oral tablet 1 tabs, Oral, Bedtime (once a day), as needed for insomnia, # 60 tabs, 0 Refill( s) Start Date: 10/19/13 Status: Ordered metFORMIN 1000 mg oral tablet 1 tabs, Oral, BID, # 60 tabs, 5 Refill(s), Pharmacy: [facility], 1 tabs Oral BID Start Date: 08/01/14 Status: Ordered Metoprolol Tartrate 50 mg oral tablet See Instructions, 1 tabs Oral BID 90 day supply, # 180 tabs, 0 Refill(s), Pharmacy: [facility], 1 tabs Oral BID [...] BID, # 120 tabs, 3 Refill(s), Pharmacy: [facility], 2 tabs Oral BID Start Date: 03/29/15 Status: Ordered torsemide 20 mg oral tablet 2 tabs, Oral, Daily, # 60 tabs, 3 Refill(s), Pharmacy: [facility], 2 tabs Oral Daily Start Date: 09/07/14 Status: Ordered warfarin 5 mg oral tablet 5 mg 1 tabs, Oral, Daily, # 90 tabs, 1 Refill(s), Pharmacy: [facility], 1 tabs Oral Daily Start Date: 03/08/16 Status: Ordered Results No data available for this section Immunizations Vaccine Date Refusal Reason pneumococcal 23-polyvalent vaccine 05/17/09 Procedures Procedure Date Related Diagnosis Body Site Application of multi-layer compression 04/08/16 system; leg (below knee), including ankle and foot Colonoscopy1 12/29/15 Procedure with Anesthesia2 12/29/15 gallbladder hand3 lower leg4 tonsils 1auto-populated from documented surgical case 2auto-populated from documented surgical case 3right hand fifth finger 4right with hardware Social History Social History Type Response Smoking Status Never smoker Assessment and Plan No data available for this section
--- OUTSIDE RECORDS SUMMARY | 2016-09-05 15:59 | XMS REPORT | Referral Summary ---
Author Author [facility] Jaylan Doming[facility], Family Medicine Organization [facility] Address Unknown Phone Unavailable Care Team Providers Care Drain Tiler Name Role Phone Kimo Rowland Primary Care Physician [phone] Encounter Date(s): 04/08/16 - 04/08/16 [facility] [address] [place] [address] Discharge Diagnosis: Abnormal laboratory test Discharge Diagnosis: Cellulitis of leg Discharge Diagnosis: Warfarin anticoagulation Discharge Diagnosis: Benign essential hypertension (disorder) Discharge Diagnosis: Congestive heart failure Discharge Diagnosis: Hospital discharge follow-up Discharge Disposition: 01-Home or Self Care Attending Physician: Evgeny Copeland MD Admitting Physician: Stanley Rowland MD Vital Signs Most recent to 1 oldest [Reference Range]: Temperature Oral 36.1 degC [35.8-37.3 degC] (04/08/16 3:03 PM) Peripheral Pulse 82 bpm Rate [60-100 bpm] (04/08/16 3:03 PM) Respiratory Rate 20 br/min [14-20 br/min] (04/08/16 3:03 PM) Blood Pressure 115/61 mmHg [90-140/60-90 mmHg] (04/08/16 3:03 PM) Problem List Condition Effective Dates Status Health Status Informant Atrial fibrillation Active (disorder)(Confirmed ) Benign essential Active hypertension (disorder)(Confirmed ) Cellulitis(Confirmed Active ) Congestive heart Active failure(Confirmed) Non-healing ulcer of Active lower leg(Confirmed) Crohn's disease Active (disorder)(Confirmed ) Therapeutic drug Active monitoring(Confirmed ) Obesity Active hypoventilation syndrome(Confirmed) Warfarin Active anticoagulation(Conf irmed) High Active patient cholesterol(Confirme d) Hypothyroidism(Confi Active rmed) [place] (myocardial Active patient infarction)(Confirme d)1 Morbid obesity [...] TID, # 90 tabs, 3 Refill(s), Pharmacy: [facility], 1 tabs Oral TID [...] DAILY, # 180 caps, 1 Refill(s), Pharmacy: [facility], TAKE TWO CAPSULES BY MOUTH THREE TIMES DAILY Start Date: 04/08/16 Status: Ordered garlic oral tablet 1,000 mg, Oral, Daily, 0 Refill(s) Start Date: 04/06/14 Status: Ordered isosorbide mononitrate 60 mg oral tablet, extended release 60 mg 1 tabs, Oral, qAM, # 30 tabs, 6 Refill(s), Pharmacy: [facility], 1 tabs Oral qAM Start Date: 12/29/15 Status: Ordered Keflex 500 mg oral capsule 500 mg 1 caps, Oral, q6hr, Got while in hospital, 0 Refill(s) Start Date: 04/08/16 Stop Date: 04/18/16 Status: Ordered Lantus 100 units/mL subcutaneous solution See Instructions, INJECT 60 UNITS UNDER THE SKIN DAILY. 1 month supply., # 20 mL , 5 Refill(s), Pharmacy: [facility], INJECT 60 UNITS UNDER THE SKIN DAILY. 1 month supply. Start Date: 04/08/16 Status: Ordered levothyroxine 50 mcg (0.05 mg) oral tablet 50 mcg 1 tabs, Oral, Daily, 90 day supply, # 90 tabs, 1 Refill(s), Pharmacy: [facility], 1 tabs Oral Daily,Instr:90 day supply Start Date: 12/01/15 Status: Ordered lisinopril 5 mg oral tablet See Instructions, take 1 tablet daily 90 day supply, # 90 tabs, 1 Refill(s), Pharmacy: [facility], take 1 tablet daily 90 day supply Start Date: 12/01/15 Status: Ordered melatonin 5 mg oral tablet 1 tabs, Oral, Bedtime (once a day), as needed for insomnia, # 60 tabs, 0 Refill( s) Start Date: 10/19/13 Status: Ordered metFORMIN 1000 mg oral tablet 1 tabs, Oral, BID, # 60 tabs, 5 Refill(s), Pharmacy: [facility], 1 tabs Oral BID Start Date: 08/01/14 Status: Ordered Metoprolol Tartrate 50 mg oral tablet See Instructions, 1 tabs Oral BID 90 day supply, # 180 tabs, 0 Refill(s), Pharmacy: [facility], 1 tabs Oral BID [...] BID, # 120 tabs, 3 Refill(s), Pharmacy: [facility], 2 tabs Oral BID Start Date: 03/29/15 Status: Ordered torsemide 20 mg oral tablet 2 tabs, Oral, Daily, # 60 tabs, 3 Refill(s), Pharmacy: [facility], 2 tabs Oral Daily Start Date: 09/07/14 Status: Ordered warfarin 5 mg oral tablet 5 mg 1 tabs, Oral, Daily, # 90 tabs, 1 Refill(s), Pharmacy: [facility], 1 tabs Oral Daily Start Date: 03/08/16 Status: Ordered Results Hematology Most recent to 1 oldest [Reference Range]: WBC [4.8-10.8 8.6 10*3/uL 10*3/uL] (04/08/16 3:30 PM) RBC [4.60-6.20] 4.08 *LOW* (04/08/16 3:30 PM) Hgb [14.0-18.0 11.0 gm/dL gm/dL] *LOW* (04/08/16 3:30 PM) Hct [42.0-52.0 %] 35.1 % *LOW* (04/08/16 3:30 PM) MCV [82.0-99.0 fL] 86.0 fL (04/08/16 3:30 PM) MCH [27.0-32.0 pg] 27.0 pg (04/08/16 3:30 PM) MCHC [32.0-36.0 31.3 gm/dL gm/dL] *LOW* (04/08/16 3:30 PM) RDW [11.5-14.5 %] 13.9 % (04/08/16 3:30 PM) Platelet [150-400 290 10*3/uL 10*3/uL] (04/08/16 3:30 PM) MPV [8.8-14.8 fL] 10.5 fL (04/08/16 3:30 PM) Coagulation Most recent to 1 oldest [Reference Range]: INR [0.9-1.2] 2.0 *HI* (04/08/16 3:30 PM) Chemistry Most recent to 1 oldest [Reference Range]: Sodium Lvl [135-144 139 mEq/L mEq/L] (04/08/16 3:30 PM) Potassium Lvl 4.8 mEq/L [3.5-5.2 mEq/L] (04/08/16 3:30 PM) Chloride [99-111 102 mEq/L mEq/L] (04/08/16 3:30 PM) CO2 [23-31 mEq/L] 27 mEq/L (04/08/16 3:30 PM) AGAP [3-20] 10 (04/08/16 3:30 PM) BUN [8-26 mg/dL] 29 mg/dL *HI* (04/08/16 3:30 PM) Glucose Lvl [70-99 135 mg/dL mg/dL] *HI* (04/08/16 3:30 PM) Creatinine Lvl 1.12 mg/dL [0.72-1.25 mg/dL] (04/08/16 3:30 PM) eGFR [>60 mL/min] >60 mL/min 1 (04/08/16 3:30 PM) Calcium Lvl 8.5 mg/dL [8.9-10.5 mg/dL] *LOW* (04/08/16 3:30 PM) Albumin Lvl [3.4-4.8 3.3 gm/dL gm/dL] *LOW* (04/08/16 3:30 PM) Magnesium Lvl 1.9 mg/dL [1.6-2.6 mg/dL] (04/08/16 3:30 PM) Phosphorus [2.3-4.7 3.1 mg/dL mg/dL] (04/08/16 3:30 PM) 1Result Comment: Multiply eGFR results by 1.21 for race. Immunizations Vaccine Date Refusal Reason pneumococcal 23-polyvalent vaccine 05/17/09 Procedures Procedure Date Related Diagnosis Body Site Colonoscopy1 12/29/15 Procedure with Anesthesia2 12/29/15 gallbladder hand3 lower leg4 tonsils 1auto-populated from documented surgical case 2auto-populated from documented surgical case 3right hand fifth finger 4right with hardware Social History Social History Type Response Smoking Status Never smoker Assessment and Plan No data available for this section
--- OUTSIDE RECORDS SUMMARY | 2016-09-05 15:59 | XMS REPORT | Referral Summary ---
Author Author [facility] Organization [facility] Address Unknown Phone Unavailable Care Team Providers Care Hair Stylist Name Role Phone Kimo Rowland Primary Care Physician [phone] Encounter VC Date(s): 06/10/16 - 06/10/16 [facility] [address] [place] [address] [place] [phone] Discharge Disposition: 01-Home or Self Care Attending [...] Active patient cholesterol(Confirme d) Hypothyroidism(Confi Active rmed) [place] (myocardial Active patient infarction)(Confirme d)1 Morbid obesity [...] BID, # 60 tabs, 6 Refill(s), Pharmacy: [facility] , 1 tabs Oral BID,x30 days Start Date: 06/07/16 Stop Date: 01/03/17 Status: Ordered Cartia XT 180 mg/24 hours oral capsule, extended release See Instructions, TAKE ONE CAPSULE BY MOUTH ONCE DAILY, # 30 caps, 6 Refill(s), Pharmacy: [place] [address] Start Date: 06/04/16 Status: Ordered Colace 50 mg oral capsule 1 caps, Oral, Daily, # 30 caps, 0 Refill(s) Start Date: 10/07/13 Status: Ordered gabapentin 300 mg oral capsule See Instructions, TAKE TWO CAPSULES BY MOUTH THREE TIMES DAILY, # 180 caps, 1 Refill(s), Pharmacy: [place] [address], TAKE TWO CAPSULES BY MOUTH THREE TIMES DAILY Start Date: 04/08/16 Status: Ordered garlic oral tablet 1,000 mg, Oral, Daily, 0 Refill(s) Start Date: 04/06/14 Status: Ordered HumaLOG 100 units/mL subcutaneous solution See Instructions, 0.35 mL SubCutaneous TIDAC E11.9, # 31.5 mL, 6 Refill(s), Pharmacy: [facility], 0.35 mL SubCutaneous TIDAC; E11.9 Start Date: [...] DAILY., # 30 mL, 6 Refill(s), Pharmacy: [facility], INJECT 60 UNITS UNDER THE SKIN DAILY. Start Date: 06/04/16 Status: Ordered levothyroxine 50 mcg (0.05 mg) oral tablet 50 mcg 1 tabs, Oral, Daily, 90 day supply, # 90 tabs, 1 Refill(s), Pharmacy: [place] [address], 1 tabs Oral Daily,Instr:90 day supply Start Date: 12/01/15 Status: Ordered lisinopril 5 mg oral tablet See Instructions, TAKE ONE TABLET BY MOUTH ONCE DAILY, # 90 tabs, 1 Refill(s), eRx: [place] [address] Start Date: 06/10/16 Status: Ordered melatonin 5 mg oral tablet 1 tabs, Oral, Bedtime (once a day), as needed for insomnia, # 60 tabs, 0 Refill( s) Start Date: 10/19/13 Status: Ordered metFORMIN 1000 mg oral tablet See Instructions, TAKE ONE TABLET BY MOUTH TWICE DAILY, # 60 tabs, 6 Refill(s), Pharmacy: [place] [address] Start Date: 06/10/16 Status: Ordered metoprolol tartrate 100 mg oral tablet 100 mg 1 tabs, Oral, BID, # 60 tabs, 3 Refill(s), Pharmacy: [place] [address] Start Date: 04/11/16 Stop Date: 08/09/16 Status: Ordered Metoprolol Tartrate 50 mg oral tablet See Instructions, 1 tabs Oral BID 90 day supply, # 180 tabs, 0 Refill(s), Pharmacy: [facility], 1 tabs Oral BID 90 day supply [...] day), # 30 tabs, 1 Refill(s), Pharmacy: [facility], 1 tabs Oral Bedtime (once [...] Diagnosis Body Site Application of multi-layer compression 06/10/16 system; leg (below knee), including ankle and foot Colonoscopy1 12/29/15 Procedure with Anesthesia2 12/29/15 gallbladder hand3 lower leg4 tonsils 1auto-populated from documented surgical case 2auto-populated from documented surgical case 3right hand fifth finger 4right with hardware Social History Social History Type Response Smoking Status Never smoker Assessment and Plan No data available for this section
--- OUTSIDE RECORDS SUMMARY | 2016-09-05 15:59 | XMS REPORT | Referral Summary ---
Author [facility] Address Unknown Phone Unavailable Care Team Providers Care Burglar Alarm Mechanic Name Role Phone Kimo Rowland Primary Care Physician [phone] Encounter VC Date(s): 02/08/16 - 02/08/16 [facility]lan [facility]Dminguez [facility] [address] [place] [address] Discharge Diagnosis: Short-term memory loss Discharge Diagnosis: Congestive heart failure Discharge Diagnosis: Benign essential hypertension (disorder) Discharge Diagnosis: Colon polyp Discharge Diagnosis: Type 2 diabetes mellitus Discharge Diagnosis: Diabetic neuropathy Discharge Disposition: 01-Home or Self Care Attending Physician: Stanley Rowland MD Admitting Physician: Stanley Rowland MD Vital Signs Most recent to 1 oldest [Reference Range]: Temperature Oral 36.1 degC [35.8-37.3 degC] (02/08/16 1:55 PM) Peripheral Pulse 72 bpm Rate [60-100 bpm] (02/08/16 1:55 PM) Respiratory Rate 16 br/min [14-20 br/min] (02/08/16 1:55 PM) Blood Pressure 110/84 mmHg [90-140/60-90 mmHg] (02/08/16 1:55 PM) Problem List Condition Effective Dates Status Health Status Informant Atrial fibrillation Active (disorder)(Confirmed ) Benign essential Active hypertension (disorder)(Confirmed ) Cellulitis(Confirmed Active ) Congestive heart Active failure(Confirmed) Non-healing ulcer of Active lower leg(Confirmed) Crohn's disease Active (disorder)(Confirmed ) Therapeutic drug Active monitoring(Confirmed ) Obesity Active hypoventilation syndrome(Confirmed) Warfarin Active anticoagulation(Conf irmed) High Active patient cholesterol(Confirme d) Hypothyroidism(Confi Active rmed) [place] (myocardial Active patient infarction)(Confirme d)1 Morbid obesity [...] DAILY, # 180 caps, 1 Refill(s), eRx: [facility], TAKE TWO CAPSULES [...] supply, # 90 tabs, 1 Refill(s), Pharmacy: [facility], 1 tabs Oral [...] BID, # 120 tabs, 3 Refill(s), Pharmacy: [facility], 2 tabs Oral BID [...] Daily Start Date: 07/03/15 Status: Ordered Results Coagulation Most recent to 1 oldest [Reference Range]: INR [0.9-1.2] 1.5 *HI* (02/08/16 2:44 PM) Chemistry Most recent to 1 oldest [Reference Range]: Hgb A1c [4.1-5.6 %] 7.6 % *HI* (02/08/16 2:44 PM) eAvg Glucose 171.4 mg/dL (02/08/16 2:44 PM) Immunizations Vaccine Date Refusal Reason pneumococcal 23-polyvalent [...]
[2016-09-05 16:00] VITALS: TEMP 97.5; Ht 177.8 cm; Wt 204.0 kg
--- OUTSIDE RECORDS SUMMARY | 2016-09-05 16:00 | XMS REPORT | Referral Summary ---
Author Author [facility] Organization [facility] Address Unknown Phone Unavailable Care Team Providers Care Working Manager Name Role Phone Kashif, Kimo Primary Care Physician [phone] Encounter VC Date(s): 05/13/16 - 05/13/16 [facility] [address] [place] [address] [phone] Discharge Disposition: 01-Home or Self Care Attending [...] Active patient cholesterol(Confirme d) Hypothyroidism(Confi Active rmed) [place] (myocardial Active patient infarction)(Confirme d)1 Morbid obesity [...] TID, # 90 tabs, 3 Refill(s), Pharmacy: [facility], 1 tabs Oral TID [...] DAILY, # 180 caps, 1 Refill(s), Pharmacy: [facility], TAKE TWO CAPSULES BY MOUTH THREE TIMES DAILY Start Date: 04/08/16 Status: Ordered garlic oral tablet 1,000 mg, Oral, Daily, 0 Refill(s) Start Date: 04/06/14 Status: Ordered isosorbide mononitrate 60 mg oral tablet, extended release 60 mg 1 tabs, Oral, qAM, # 30 tabs, 6 Refill(s), Pharmacy: [facility], 1 tabs Oral qAM Start Date: 12/29/15 Status: Ordered Keflex 500 mg oral capsule 500 mg 1 caps, Oral, q6hr, Got while in hospital, 0 Refill(s) Start Date: 04/08/16 Stop Date: 04/18/16 Status: Ordered Lantus 100 units/mL subcutaneous solution See Instructions, INJECT 60 UNITS UNDER THE SKIN DAILY. 1 month supply., # 20 mL , 5 Refill(s), Pharmacy: [facility], INJECT 60 UNITS UNDER THE SKIN DAILY. 1 month supply. Start Date: 04/08/16 Status: Ordered levothyroxine 50 mcg (0.05 mg) oral tablet 50 mcg 1 tabs, Oral, Daily, 90 day supply, # 90 tabs, 1 Refill(s), Pharmacy: [facility], 1 tabs Oral Daily,Instr:90 day supply Start Date: 12/01/15 Status: Ordered lisinopril 5 mg oral tablet See Instructions, take 1 tablet daily 90 day supply, # 90 tabs, 1 Refill(s), Pharmacy: [facility], take 1 tablet daily 90 day supply Start Date: 12/01/15 Status: Ordered melatonin 5 mg oral tablet 1 tabs, Oral, Bedtime (once a day), as needed for insomnia, # 60 tabs, 0 Refill( s) Start Date: 10/19/13 Status: Ordered metFORMIN 1000 mg oral tablet 1 tabs, Oral, BID, # 60 tabs, 5 Refill(s), Pharmacy: [facility], 1 tabs Oral BID Start Date: 08/01/14 Status: Ordered metoprolol tartrate 100 mg oral tablet 100 mg 1 tabs, Oral, BID, # 60 tabs, 3 Refill(s), Pharmacy: [facility] Start Date: 04/11/16 Stop Date: 08/09/16 Status: Ordered Metoprolol Tartrate 50 mg oral tablet See Instructions, 1 tabs Oral BID 90 day supply, # 180 tabs, 0 Refill(s), Pharmacy: [facility], 1 tabs Oral BID [...] Daily, # 60 tabs, 3 Refill(s), Pharmacy: [facility], 2 tabs Oral Daily Start Date: 09/07/14 Status: Ordered warfarin 5 mg oral tablet 5 mg 1 tabs, Oral, Daily, # 90 tabs, 1 Refill(s), Pharmacy: [facility], 1 tabs Oral Daily Start Date: 03/08/16 Status: Ordered Results No data available for this section Immunizations Given and Recorded Vaccine Date Status Refusal Reason pneumococcal 23-polyvalent vaccine 05/17/09 Recorded Procedures Procedure Date Related Diagnosis Body Site Application of multi-layer compression 05/13/16 system; leg (below knee), including ankle and foot Colonoscopy1 12/29/15 Procedure with Anesthesia2 12/29/15 gallbladder hand3 lower leg4 tonsils 1auto-populated from documented surgical case 2auto-populated from documented surgical case 3right hand fifth finger 4right with hardware Social History Social History Type Response Smoking Status Never smoker Assessment and Plan No data available for this section
--- OUTSIDE RECORDS SUMMARY | 2016-09-05 16:00 | XMS REPORT | Referral Summary ---
Author Author [facility] Organization [facility] Address Unknown Phone Unavailable Care Team Providers Care Supervising Editor Trailer Name Role Phone KashifKimo Primary Care Physician [phone] Encounter VC Date(s): 03/11/16 - 03/11/16 [facility] [address] [place] [address] Discharge Disposition: 01-Home or Self Care Attending [...] Active patient cholesterol(Confirme d) Hypothyroidism(Confi Active rmed) [place] (myocardial Active patient infarction)(Confirme d)1 Morbid obesity [...] TID, # 90 tabs, 3 Refill(s), Pharmacy: [facility], 1 tabs Oral TID Start [...] DAILY, # 180 caps, 1 Refill(s), eRx: [facility], TAKE TWO CAPSULES BY MOUTH THREE TIMES DAILY Start Date: 01/24/16 Status: Ordered garlic oral tablet 1,000 mg, Oral, Daily, 0 Refill(s) Start Date: 04/06/14 Status: Ordered isosorbide mononitrate 60 mg oral tablet, extended release 60 mg 1 tabs, Oral, qAM, # 30 tabs, 6 Refill(s), Pharmacy: [facility], 1 tabs Oral qAM Start Date: 12/29/15 Status: Ordered Lantus 100 units/mL subcutaneous solution See Instructions, INJECT 60 UNITS UNDER THE SKIN DAILY. 1 month supply., # 20 mL , 5 Refill(s), Pharmacy: [facility], INJECT 60 UNITS UNDER THE SKIN DAILY. 1 month supply. Start Date: 07/03/15 Status: Ordered levothyroxine 50 mcg (0.05 mg) oral tablet 50 mcg 1 tabs, Oral, Daily, 90 day supply, # 90 tabs, 1 Refill(s), Pharmacy: [facility], 1 tabs Oral Daily,Instr:90 day supply Start Date: 12/01/15 Status: Ordered lisinopril 5 mg oral tablet See Instructions, take 1 tablet daily 90 day supply, # 90 tabs, 1 Refill(s), Pharmacy: [facility], take 1 tablet daily 90 day supply Start Date: 12/01/15 Status: Ordered melatonin 5 mg oral tablet 1 tabs, Oral, Bedtime (once a day), as needed for insomnia, # 60 tabs, 0 Refill( s) Start Date: 10/19/13 Status: Ordered metFORMIN 1000 mg oral tablet 1 tabs, Oral, BID, # 60 tabs, 5 Refill(s), Pharmacy: [facility], 1 tabs Oral BID Start Date: 08/01/14 Status: Ordered Metoprolol Tartrate 50 mg oral tablet See Instructions, 1 tabs Oral BID 90 day supply, # 180 tabs, 0 Refill(s), Pharmacy: [facility], 1 tabs Oral BID 90 [...] BID, # 120 tabs, 3 Refill(s), Pharmacy: [facility], 2 tabs Oral BID Start Date: 03/29/15 Status: Ordered torsemide 20 mg oral tablet 2 tabs, Oral, Daily, # 60 tabs, 3 Refill(s), Pharmacy: [facility], 2 tabs Oral Daily Start Date: 09/07/14 Status: Ordered warfarin 5 mg oral tablet 5 mg 1 tabs, Oral, Daily, # 90 tabs, 1 Refill(s), Pharmacy: [facility], 1 tabs Oral Daily Start [...]
--- OUTSIDE RECORDS SUMMARY | 2016-09-05 16:01 | XMS REPORT ---
Author Author [facility] Organization Unknown Address Unknown Phone Unavailable Care Team Providers Care Shower Maid Name Role Phone PP Unavailable Reason For Visit Chief Complaint LT LOWER EXTREMITY Social History Functional Status Vital Signs Results Problems Encounter Diagnosis No relevant problems exist. Encounters Encounter Diagnosis No relevant problems exist. Plan of Care Procedures No relevant procedures performed. Immunizations No immunizations administered or ordered. Hospital Course Hospital Discharge Instructions Allergies, Adverse Reactions, Alerts * Latex Allergy has not been assessed. * IV Contrast Allergy has not been assessed. Medication Medication reconciliation has not been performed.
--- OUTSIDE RECORDS SUMMARY | 2016-09-05 16:01 | XMS REPORT | Referral Summary ---
Author Author [facility] Jaylan Dominguez, Family Medicine Organization [facility] Address Unknown Phone Unavailable Care Team Providers Care Sightseeing Guide Name Role Phone Kimo Rowland Primary Care Physician [phone] Encounter Date(s): 06/07/16 - 06/07/16 [facility] Jaylan Dominguez [facility] Medicine [address] [place] [address] Discharge Diagnosis: Insomnia Discharge Diagnosis: Sleep apnea Discharge Diagnosis: Leg swelling Discharge Disposition: 01-Home or Self Care Attending Physician: Camille Sanchez MD Admitting Physician: Stanley Rowland MD Vital Signs Most recent to 1 oldest [Reference Range]: Temperature Oral 36.4 degC [35.8-37.3 degC] (06/07/16 3:16 PM) Peripheral Pulse 88 bpm Rate [60-100 bpm] (06/07/16 3:16 PM) Respiratory Rate 22 br/min [14-20 br/min] *HI* (06/07/16 3:16 PM) Blood Pressure 142/82 mmHg [90-140/60-90 mmHg] *HI* (06/07/16 3:16 PM) Problem List Condition Effective Dates Status Health Status Informant Atrial fibrillation Active (disorder)(Confirmed ) Benign essential Active hypertension (disorder)(Confirmed ) Cellulitis(Confirmed Active ) Congestive heart Active failure(Confirmed) Non-healing ulcer of Active lower leg(Confirmed) Crohn's disease Active (disorder)(Confirmed ) Therapeutic drug Active monitoring(Confirmed ) Obesity Active hypoventilation syndrome(Confirmed) Warfarin Active anticoagulation(Conf irmed) High Active patient cholesterol(Confirme d) Hypothyroidism(Confi Active rmed) ND (myocardial Active patient infarction)(Confirme d)1 Morbid obesity [...] TID, # 90 tabs, 3 Refill(s), Pharmacy: [facility] [id number], 1 tabs Oral TID Start Date: 10/05/15 Status: Ordered bumetanide 2 mg oral tablet 2 mg 1 tabs, Oral, BID, # 60 tabs, 6 Refill(s), Pharmacy: [facility] [address] , 1 tabs Oral BID,x30 days Start Date: 06/07/16 Stop Date: 01/03/17 Status: Ordered Cartia XT 180 mg/24 hours oral capsule, extended release See Instructions, TAKE ONE CAPSULE BY MOUTH ONCE DAILY, # 30 caps, 6 Refill(s), Pharmacy: [facility] Start Date: 06/04/16 Status: Ordered Colace 50 mg oral capsule 1 caps, Oral, Daily, # 30 caps, 0 Refill(s) Start Date: 10/07/13 Status: Ordered gabapentin 300 mg oral capsule See Instructions, TAKE TWO CAPSULES BY MOUTH THREE TIMES DAILY, # 180 caps, 1 Refill(s), Pharmacy: [facility], TAKE TWO CAPSULES BY MOUTH THREE TIMES DAILY Start Date: 04/08/16 Status: Ordered garlic oral tablet 1,000 mg, Oral, Daily, 0 Refill(s) Start Date: 04/06/14 Status: Ordered HumaLOG 100 units/mL subcutaneous solution See Instructions, 0.35 mL SubCutaneous TIDAC E11.9, # 31.5 mL, 6 Refill(s), Pharmacy: [facility], 0.35 mL SubCutaneous TIDAC; E11.9 Start Date: 05/14/16 Status: Ordered isosorbide mononitrate 60 mg oral tablet, extended release 60 mg 1 tabs, Oral, qAM, # 30 tabs, 6 Refill(s), Pharmacy: [facility], 1 tabs Oral qAM Start Date: 12/29/15 Status: Ordered Keflex 500 mg oral capsule 500 mg 1 caps, Oral, q6hr, Got while in hospital, 0 Refill(s) Start Date: 04/08/16 Stop Date: 04/18/16 Status: Ordered Lantus 100 units/mL subcutaneous solution See Instructions, INJECT 60 UNITS UNDER THE SKIN DAILY., # 30 mL, 6 Refill(s), Pharmacy: [facility], INJECT 60 UNITS UNDER THE SKIN DAILY. Start Date: 06/04/16 Status: Ordered levothyroxine 50 mcg (0.05 mg) oral tablet 50 mcg 1 tabs, Oral, Daily, 90 day supply, # 90 tabs, 1 Refill(s), Pharmacy: [facility], 1 tabs Oral Daily,Instr:90 day supply Start Date: 12/01/15 Status: Ordered lisinopril 5 mg oral tablet See Instructions, take 1 tablet daily 90 day supply, # 90 tabs, 1 Refill(s), Pharmacy: [facility], take 1 tablet daily 90 day supply Start Date: 12/01/15 Status: Ordered melatonin 5 mg oral tablet 1 tabs, Oral, Bedtime (once a day), as needed for insomnia, # 60 tabs, 0 Refill( s) Start Date: 10/19/13 Status: Ordered metFORMIN 1000 mg oral tablet 1 tabs, Oral, BID, # 60 tabs, 5 Refill(s), Pharmacy: [facility], 1 tabs Oral BID Start Date: 08/01/14 Status: Ordered metoprolol tartrate 100 mg oral tablet 100 mg 1 tabs, Oral, BID, # 60 tabs, 3 Refill(s), Pharmacy: [facility] Start Date: 04/11/16 Stop Date: 08/09/16 Status: Ordered Metoprolol Tartrate 50 mg oral tablet See Instructions, 1 tabs Oral BID 90 day supply, # 180 tabs, 0 Refill(s), Pharmacy: [facility], 1 tabs Oral BID 90 [...] Daily, # 60 tabs, 3 Refill(s), Pharmacy: [facility], 2 tabs Oral Daily Start Date: 09/07/14 Status: Ordered traZODone 50 mg oral tablet 50 mg 1 tabs, Oral, Bedtime (once a day), # 30 tabs, 1 Refill(s), Pharmacy: [facility], 1 tabs Oral Bedtime (once a day),x30 days Start Date: 06/07/16 Stop Date: 08/06/16 Status: Ordered warfarin 5 mg oral tablet 5 mg 1 tabs, Oral, Daily, # 90 tabs, 1 Refill(s), Pharmacy: [facility], 1 tabs Oral Daily Start Date: 03/08/16 Status: Ordered Results Chemistry Most recent to 1 oldest [Reference Range]: Sodium Lvl [135-144 137 mEq/L mEq/L] (06/07/16 4:18 PM) Potassium Lvl 4.4 mEq/L [3.5-5.2 mEq/L] (06/07/16 4:18 PM) Chloride [99-111 101 mEq/L mEq/L] (06/07/16 4:18 PM) CO2 [23-31 mEq/L] 27 mEq/L (06/07/16 4:18 PM) AGAP [3-20] 9 (06/07/16 4:18 PM) BUN [8-26 mg/dL] 25 mg/dL (06/07/16 4:18 PM) Glucose Lvl [70-99 187 mg/dL mg/dL] *HI* (06/07/16 4:18 PM) Creatinine Lvl 1.01 mg/dL [0.72-1.25 mg/dL] (06/07/16 4:18 PM) eGFR [>60 mL/min] >60 mL/min 1 (06/07/16 4:18 PM) Calcium Lvl 9.2 mg/dL 2 [8.4-10.2 mg/dL] (06/07/16 4:18 PM) Albumin Lvl [3.4-4.8 3.9 gm/dL gm/dL] (06/07/16 4:18 PM) Magnesium Lvl 1.7 mg/dL [1.6-2.6 mg/dL] (06/07/16 4:18 PM) Phosphorus [2.3-4.7 3.8 mg/dL mg/dL] (06/07/16 4:18 PM) 1Result Comment: Multiply eGFR results by 1.21 for race. 2Result Comment: Please note reference range change effective 06/07/2016. Immunizations Given and Recorded Vaccine Date Status [...]
--- OUTSIDE RECORDS SUMMARY | 2016-09-05 16:01 | XMS REPORT | Referral Summary ---
Author Author [facility] Organization [facility] Address Unknown Phone Unavailable Care Team Providers Care Podiatric Aide Name Role Phone KashifKimo Primary Care Physician [phone] Encounter VC Date(s): 05/27/16 - 05/27/16 [facility] [address] [place] [address] [phone] Discharge Disposition: 01-Home or Self Care Attending [...] TID, # 90 tabs, 3 Refill(s), Pharmacy: [facility], 1 tabs Oral [...] DAILY, # 180 caps, 1 Refill(s), Pharmacy: [facility], TAKE TWO CAPSULES BY MOUTH THREE TIMES DAILY Start Date: 04/08/16 Status: Ordered garlic oral tablet 1,000 mg, Oral, Daily, 0 Refill(s) Start Date: 04/06/14 Status: Ordered HumaLOG 100 units/mL subcutaneous solution See Instructions, 0.35 mL SubCutaneous TIDAC E11.9, # 31.5 mL, 6 Refill(s), Pharmacy: [facility], 0.35 mL SubCutaneous TIDAC; E11.9 Start Date: 05/14/16 Status: Ordered isosorbide mononitrate 60 mg oral tablet, extended release 60 mg 1 tabs, Oral, qAM, # 30 tabs, 6 Refill(s), Pharmacy: [facility], 1 tabs Oral qAM Start Date: 12/29/15 Status: Ordered Keflex 500 mg oral capsule 500 mg 1 caps, Oral, q6hr, Got while in hospital, 0 Refill(s) Start Date: 04/08/16 Stop Date: 04/18/16 Status: Ordered Lantus 100 units/mL subcutaneous solution See Instructions, INJECT 60 UNITS UNDER THE SKIN DAILY. 1 month supply., # 20 mL , 5 Refill(s), Pharmacy: [facility], INJECT 60 UNITS UNDER THE SKIN DAILY. 1 month supply. Start Date: 04/08/16 Status: Ordered levothyroxine 50 mcg (0.05 mg) oral tablet 50 mcg 1 tabs, Oral, Daily, 90 day supply, # 90 tabs, 1 Refill(s), Pharmacy: [facility], 1 tabs Oral Daily,Instr:90 day supply Start Date: 12/01/15 Status: Ordered lisinopril 5 mg oral tablet See Instructions, take 1 tablet daily 90 day supply, # 90 tabs, 1 Refill(s), Pharmacy: [facility], take 1 tablet daily 90 day supply Start Date: 12/01/15 Status: Ordered melatonin 5 mg oral tablet 1 tabs, Oral, Bedtime (once a day), as needed for insomnia, # 60 tabs, 0 Refill( s) Start Date: 10/19/13 Status: Ordered metFORMIN 1000 mg oral tablet 1 tabs, Oral, BID, # 60 tabs, 5 Refill(s), Pharmacy: [facility], 1 tabs Oral BID Start Date: 08/01/14 Status: Ordered metoprolol tartrate 100 mg oral tablet 100 mg 1 tabs, Oral, BID, # 60 tabs, 3 Refill(s), Pharmacy: [facility] Start Date: 04/11/16 Stop Date: 08/09/16 Status: Ordered Metoprolol Tartrate 50 mg oral tablet See Instructions, 1 tabs Oral BID 90 day supply, # 180 tabs, 0 Refill(s), Pharmacy: [facility], 1 tabs Oral [...] Daily, # 60 tabs, 3 Refill(s), Pharmacy: [facility], 2 tabs Oral Daily Start Date: 09/07/14 Status: Ordered warfarin 5 mg oral tablet 5 mg 1 tabs, Oral, Daily, # 90 tabs, 1 Refill(s), Pharmacy: [facility], 1 tabs Oral Daily Start Date: 03/08/16 Status: Ordered Results No data available for this section Immunizations Given and Recorded Vaccine Date Status Refusal Reason pneumococcal 23-polyvalent vaccine 05/17/09 Recorded Procedures Procedure Date Related Diagnosis Body Site Application of multi-layer compression 05/27/16 system; leg (below knee), including ankle and foot Colonoscopy1 12/29/15 Procedure with Anesthesia2 12/29/15 gallbladder hand3 lower leg4 tonsils 1auto-populated from documented surgical case 2auto-populated from documented surgical case 3right hand fifth finger 4right with hardware Social History Social History Type Response Smoking Status Never smoker Assessment and Plan No data available for this section
--- NOTE | 2016-09-05 16:08 | NUR ---
PROVIDER YVES IGNACIO IN WITH PT
--- NOTE | 2016-09-05 16:17 | ERPDOC ---
Departure Disposition Decision Date: September 05, 2016 Disposition Decision Time: 16:55 Disposition: 01 DISCHARGED HOME, SELF-CARE Impression Impression Impression: Primary Impression: Acute right flank pain Severity: Moderate Condition: Stable Seen By: Mid-level only Patient Instructions: Flank Pain (ED) Problems/Meds/Labs Reviewed?: Yes Medications reviewed and manag: Yes Additional Instructions: Take the Cyclobenzaprine and the Picacho as needed for pain. If this is not improving over the next few days then please follow up with your primary care provider. If any fever, vomiting, or severe pain then return to Er for reevaluation. Your labs and urine today are all in normal limits. Follow up care ordered?: Yes Mental Status: Alert HPI - Back Pain General Chief Complaint: Flank Pain Stated Complaint: KIDNEY PAIN Time Seen by Provider: 15:54 Source: patient Exam Limitations: no limitations HPI - Back Pain Initial Comments He has onset of right flank pain about 5 days ago. Feels like it has slowly gotten worse since it started. Denies any fever or chills or abdominal pain. Has never had pain like this. It is worse when he lays flat and better when he sits up. Today he was not sure that he was going to be able to get to a sitting position from laying down. Called his PCP office and they are booked today and tomorrow. Occurred At: home Onset/Timing: Gradual Duration: other (Over the last 5 days) Severity/Quality: moderate Location: other (right flank) Method of Injury/Context: unknown Associated Sypmtoms: lower back pain, DENIES: fever, loss of bladder control, loss of bowel control, muscle spasms, numbness in legs/feet, sensory/motor loss , tingling in legs/feet, weakness Hx of Similar Symptoms: No Allergies: Coded Allergies: ibuprofen (Verified Allergy, Mild, 03/30/16) sulfamethoxazole (Verified Allergy, Unknown, rash, 03/30/16) trimethoprim (Verified Allergy, Unknown, rash, 03/30/16) Past History Patient Surgical History Cholecystectomy tonsillectomy Past Medical History GI: ulcerative colitis Neurological: neuropathy Surgical History General: gallbladder, tonsils Vaccines Hx Influenza Vaccination: No (does not take them) Hx Pneumococcal Vaccination: Yes Social History Substance Use Type: does not use Alcohol Intake: none Current Occupational Status: disabled Review of Systems Constitutional Constitutional: DENIES: chills, dizziness, fatigue, fever, weakness Cardiovascular Cardiac: DENIES: chest pain, orthopnea Rhythm/Rate: DENIES: irregular beat, palpitations Pulmonary Respiratory: DENIES: cough, dyspnea, sputum, tachypnea GI Upper Abdomen: other (right flank pain), DENIES: nausea, pain, vomiting Lower Abdomen: DENIES: constipation, diarrhea, pain General: urgency, DENIES: dysuria, frequency, hematuria Integumentary Skin: DENIES: rash Neurological General: DENIES: headache, numbness, tingling, weakness Physical Exam General General Nourishment: well nourished, well developed, appears stated age, no acute distress, adult General Body Habitus: well groomed Vitals and Pain First Documented Vital Signs Date Time Temp Pulse Resp B/P Pulse Ox O2 Delivery O2 Flow Rate FiO2 09/05/16 16:00 97.5 81 22 128/72 95 Room Air Weight: Kilograms: Height (feet): 5 Height (inches): 10.00 Triage Pain Scale: RN VS reviewed by Provider: Yes Normal Exams: Neck: Full range of motion, without adenopathy, JVD, bruits or thyromegaly Chest/Resp: Clear all coyle, with good airflow, and symmetry bilaterally CV: Regular rate and rhythm, without murmur or gallop, Pulses 2+ all extremities, capillary refill, <2 seconds all ext., no pedal edema noted Abdomen: Bowel sounds positive, non-distended, no hepatosplenomegaly, masses or bruits noted Lymphatic: No lymphadenopathy, or lymphedema noted Integumentary: No rashes, hives, or bruising noted Neurologic: Patient is alert, and oriented Psychiatric: Patient exhibits, appropriate attention, emotion and affect Abdomen Inspection: NOT FOUND: distention Palpation: FOUND: soft, tender (generalized TTP in all quadrants, mild), NOT FOUND: involuntary guarding, rebound, voluntary guarding Auscultation: FOUND: normoactive Comments Moderate TTP along the right flank, no rashes or bruising noted. Differential Diagnoses Considering: Lumbar Sprain, Lumbar Strain, Pyelonephritis, UTI Progress Results/Orders Orders Procedure Category Date Status Time Ua, Dip Wreflex LAB 09/05/16 Complete Microsc & Glass Bulb Silverer 16:10 Cbc W/Auto LAB 09/05/16 Complete Diff-Reflex Manual Cmp - Comprehensive LAB 09/05/16 Complete Metabolic Lab Results Laboratory Tests Test 09/05/16 16:06 09/05/16 16:35 Urine Collection Type Cleancatch-midstream Urine Color Yellow Urine Turbidity Clear Urine pH 5.0 Urine Specific [place] 1.015 Urine Protein Negative Urine Glucose (UA) Negative Urine Ketones Negative Urine Blood Negative Urine Nitrite Negative Urine Bilirubin Negative Urine Urobilinogen 0.2EU/DL Urine Leukocyte Esterase Negative Urinalysis Comment Microscopic not ind. White Blood Count 6.9T/MM3 Red Blood Count 4.17M/MM3 Hemoglobin 11.8GM/DL Hematocrit 35.9% Mean Corpuscular Volume 86.1UM3 Mean Corpuscular Hemoglobin 28.3UUG Mean Corpuscular Hemoglobin Concent 32.9GM/DL RDW Standard Deviation 42.3FL Platelet Count 195T/MM3 Mean Platelet Volume 10.5UM3 Immature Granulocyte % (Auto) 0.6% Neutrophils (%) (Auto) 58.7% Lymphocytes (%) (Auto) 28.1% Monocytes (%) (Auto) 8.8% Eosinophils (%) (Auto) 3.5% Basophils (%) (Auto) 0.3% Absolute Immature Granulocyte (auto 0.04T/MM3 Absolute Neutrophils (auto) 4.1T/MM3 Absolute Lymphocytes (auto) 2.0T/MM3 Absolute Monocytes (auto) 0.6T/MM3 Absolute Eosinophils (auto) 0.2T/MM3 Absolute Basophils (auto) 0.0T/MM3 Turbidity < 20 Sodium Level 140MEQ/L Potassium Level 4.6MEQ/L Chloride Level 99MEQ/L Carbon Dioxide Level 30MEQ/L Anion Gap 11MEQ/L Blood Urea Nitrogen 20.0MG/DL Creatinine 1.7MG/DL Glomerular Filtration Rate Calc 41 BUN/Creatinine Ratio 12RATIO Glucose Level 320MG/DL Calculated Osmolality 284MOSM/KG Calcium Level 8.9MG/DL Total Bilirubin 0.50MG/DL Icterus Index < 2 Aspartate Amino Transf (AST/SGOT) 18U/L Alanine Aminotransferase (ALT/SGPT) 31U/L Alkaline Phosphatase 94U/L Total Protein 6.6G/DL Albumin 3.6G/DL Globulin 3.0G/DL Albumin/Globulin Ratio 1.2RATIO Chemistry Specimen Hemolysis < 15 Progress Progress WBC is normal and without a left shift. CMP is normal. UA today is clear. Will go ahead and let him go and have him start some Flexeril and Picacho as needed. This is likely muscular. If not improving then follow up with PCP. Return precautions were given. JOHNNY FOX APRN September 05, 2016 16:17
[2016-09-05 16:23] LABS: BLOOD, URINE NEGATIVE (NEGATIVE); COLOR,URINE YELLOW (YELLOW); LEUKOCYTE ESTERASE ,URINE NEGATIVE (NEGATIVE); NITRITE,URINE NEGATIVE (NEGATIVE); UROBILINOGEN,URINE 0.2 EU/DL (NORMAL)
[2016-09-05 16:39] LABS: BASOPHILS % (AUTO) 0.3 % (0-2); EOSINOPHILS # (AUTO) 0.2 T/MM3 (0-0.5); EOSINOPHILS % (AUTO) 3.5 % (0-4); HCT - HEMATOCRIT 35.9 % (41-53); HGB - HEMOGLOBIN 11.8 GM/DL (13.5-17.5); IMMATURE GRANULOCYTE # (AUTO) 0.04 T/MM3 (0.00-0.03); IMMATURE GRANULOCYTE % (AUTO) 0.6 % (0.0-0.5); LYMPHOCYTES % (AUTO) 28.1 % (23-45); MEAN CORPUSCULAR HGB 28.3 UUG (26-34); MEAN CORPUSCULAR HGB CONC(MCHC 32.9 GM/DL (31-37); MEAN CORPUSCULAR VOLUME 86.1 UM3 (80-100); MEAN PLATELET VOLUME 10.5 UM3 (9.4-12.4); MONOCYTES # (AUTO) 0.6 T/MM3 (0-0.8); MONOCYTES % (AUTO) 8.8 % (0-9.0); NEUTROPHILS #(AUTO)-ABSOLUTE 4.1 T/MM3 (1.8-7.7); NEUTROPHILS % (AUTO) 58.7 % (33-66); RED BLOOD COUNT 4.17 M/MM3 (4.50-5.90); WBC - WHITE BLOOD COUNT 6.9 T/MM3 (4.5-11.0)
[2016-09-05 16:48] LABS: ALBUMIN 3.6 G/DL (3.5-5.0); ALBUMIN/GLOBULIN RATIO 1.2 RATIO (1.1-2.2); ALKALINE PHOSPHATASE 94 U/L (38-126); ALT (SGPT) 31 U/L (21-72); ANION GAP 11 MEQ/L (5-15); AST (SGOT) 18 U/L (17-59); BUN/CREATININE RATIO 12 RATIO (6-26); CALCIUM 8.9 MG/DL (8.4-10.2); CHLORIDE 99 MEQ/L (98-107); CO2 - CARBON DIOXIDE 30 MEQ/L (22-30); CREATININE 1.7 MG/DL (0.8-1.5); GLOMERULAR FILTRATION RATE 41; GLUCOSE 320 MG/DL (75-110); POTASSIUM 4.6 MEQ/L (3.6-5); SODIUM 140 MEQ/L (134-144); TOTAL PROTEIN 6.6 G/DL (6.3-8.2)
--- OUTSIDE RECORDS SUMMARY | 2016-09-05 16:52 | XMS REPORT | Continuity of Care Document ---
Author Author [facility] Organization [facility] Address Unknown Phone Unavailable Allergies Active Description [...] 278.01 MORBID OBESITY 03/30/2012 Final 414.01 COR -VENETIE IRA VESSEL 03/30/2012 Final 707.10 LOWER LIMB ULCER [...] (severe) obesity due to excess calories 09/27/2015 Kley,Garciaon Final I50.9 Heart failure, unspecified 09/27/2015 Kely,Garciaon [...] diabetes mellitus with other skin ulcer 10/30/2015 Keyl,, Pascual Final I87.2 Venous insufficiency (chronic) ( [...] Padilla Final I50.9 Heart failure, unspecified 02/21/2016 Cecilio Padilla Final I87.2 Venous insufficiency (chronic) [...] other venous thrombosis and embolism 06/04/2016 Cecilio Paidlla Reason E11.622 Type 2 diabetes mellitus with [...] initial encounter 06/26/2016 Stanley Rowland Final Z79.4 snf (current) use of insulin 07/29/2016 Stanley Rowland [...] Status Pt. Type Provider Facility Loc./Unit Complaint [id number] 10/05/2012 07:00:00 2012 23:59:59 CLS Outpatient Lul Adkins MD [facility] [id number] 03/30/2012 12:25:00 2011 23:59:59 CLS Outpatient [id number] 01/09/2012 09:16:00 2011 23:59:59 CLS Outpatient Lul Adkins MD [facility]
--- OUTSIDE RECORDS SUMMARY | 2016-09-05 16:56 | XMS REPORT ---
Author Author GENERATED, SYSTEM Organization Unknown Address Unknown Phone Unavailable Care Team Providers Care Assistant Service Manager Name Role Phone PP Unavailable Reason For [...]
[2016-09-05] MEDS ORDERED: HYDR-4246 PO (17:04)
[2016-09-05] MEDS ORDERED: CYCL-375 PO (17:04)
[2016-09-05 17:15] VITALS: BP 106/59; PULSE 85; RESP 18; O2SAT 93
== END 2016-09-05 17:15 | disposition home or self-care (01) ==
LOC: ED 15:50
DX: R10.11 Right upper quadrant pain (principal); M54.5 Low back pain
CPT/HCPCS: 36415; 80053; 81003; 85025